=== PATIENT | male | born 1995 | race Caucasian/White ===

== ENCOUNTER 2017-12-25 13:01 | Inpatient (IN) | payer OTHER ==
[2017-12-25 17:40] VITALS: BMI 28.2
--- NOTE | 2017-12-25 18:56 | HP ---
Admission [facility] Chief Complaint: requesting inaptient rehab from cannabis Allergies/Adverse Reactions: Allergies Allergy/AdvReac Type Severity Reaction Status Date / Time No Known Allergies Allergy Verified 12/25/17 18:58 History of Present Illness: 22 yo m with h/o cannbis dependenc, anxiety, depressuion and insoman i requesting inaptient rehab not on any meds, no h/ SI Exam Limitations: No Limitations - Ebola screening Have you traveled outside of the country in the last 21 days: No Have you had contact with anyone from an Ebola affected area: No Have you been sick,other than usual withdrawal symptoms: No - Review of Systems Constitutional: No Symptoms Reported EENT: reports: No Symptoms Reported Respiratory: reports: No Symptoms reported Cardiac: reports: No Symptoms Reported GI: reports: No Symptoms Reported : reports: No Symptoms Reported Musculoskeletal: reports: No Symptoms Reported Integumentary: reports: No Symptoms Reported Neuro: reports: No Symptoms reported Endocrine: reports: No Symptoms Reported Psychiatric: reports: Judgement Intact, Mood/Affect Appropiate, Orientated x3, Anxious, Depressed Other Systems: Reviewed and Negative Patient History - Patient Medical History Hx Anemia: No Hx Asthma: No Hx Chronic Obstructive Pulmonary Disease (COPD): No Hx Cancer: No Hx Cardiac Disorders: No Hx Congestive Heart Failure: No Hx Hypertension: No Hx Hypercholesterolemia: No Hx Pacemaker: No HX Cerebrovascular Accident: No Hx Seizures: No Hx Dementia: No Hx Diabetes: No Hx Gastrointestinal Disorders: No Hx Liver Disease: No Hx Genitourinary Disorders: No Hx Sexually Transmitted Disorders: No Hx Renal Disease (ESRD): No Hx Thyroid Disease: No Hx Human Immunodeficiency Virus (HIV): No Hx Hepatitis C: No Hx Depression: Yes (was taking remoreon) Hx Suicide Attempt: No (no si at this tiem) Hx Bipolar Disorder: No Hx Schizophrenia: No - Patient Surgical History Past Surgical History: Yes Hx Orthopedic Surgery: Yes (orif funn bone r) Anesthesia Reaction: No - PPD History Previous Implant?: No Documented Results: Negative w/o proof PPD to be Administered?: Yes - Reproductive History Patient is a Female of Child Bearing Age (11 -55 yrs old): No Patient : No - Smoking Cessation Smoking history: Current every day smoker Have you smoked in the past 12 months: Yes Aproximately how many cigarettes per day: 10 Hx Chewing Tobacco Use: No Initiated information on smoking cessation: Yes 'Breaking Loose' booklet given: 12/25/17 Family Disease History - Family Disease History Family History: Denies Admission Physical Exam [facility] - Vital Signs Vital Signs: Vital Signs - 24 hr 12/25/17 17:38 Temperature 96.9 F L Pulse Rate 60 Respiratory 18 Rate Blood Pressure 140/73 - Physical General Appearance: Yes: Within Normal Limits, No Apparent Distress, Nourished, Appropriately Dressed HEENTM: Yes: Within Normal Limits, EOMI, Hearing grossly Normal, Normal ENT Inspection, Normocephalic, Normal Voice, [place], Pharynx Normal Respiratory: Yes: Within Normal Limits, Chest Non-Tender, Lungs Clear, Normal Breath Sounds, No Respiratory Distress, No Accessory Muscle Use Neck: Yes: Within Normal Limits, No masses,lesions,Nodules, Supple, Trachea in good position Breast: Yes: Breast Exam Deferred Cardiology: Yes: Within Normal Limits, Regular Rhythm, Regular Rate, S1, S2 Abdominal: Yes: Within Normal Limits, Normal Bowel Sounds, Non Tender, Flat, Soft Genitourinary: Yes: Within Normal Limits Back: Yes: Within Normal Limits, Normal Inspection Musculoskeletal: Yes: Within Normal Limits, full range of Motion, Gait Steady, Pelvis Stable Extremities: Yes: Within Normal Limits, Normal Capillary Refill, Normal Inspection, Normal Range of Motion, Non-Tender 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: 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: 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 NML intact, Fully Oriented, Alert, Motor Strength 5/5, Normal Response, Depressed Affect Integumentary: Yes: Within Normal Limits, Normal Color, Dry, Warm Lymphatic: Yes: Within Normal Limits - Diagnostic (1) Anxiety Current Visit: Yes Status: Acute (2) Cannabis dependence Current Visit: Yes Status: Acute (3) Depression Current Visit: Yes Status: Acute (4) Insomnia Current Visit: Yes Status: Acute Cleared for Admission [facility] - Detox or Rehab Claeared for Rehab Admission: Yes [facility] Breath Alcohol Content Breath Alcohol Content: 0 Urine Drug Screen - Results Drug Screen Negative: No Urine Drug Screen Results: THC-Marijuana Inpatient Rehab Admission - Initial Determination Are CD services needed?: Yes Free of communicable disease: Yes Not in need of hospitalization: Yes - Rehab Admission Criteria Lacks judgement: Yes Patient is meeting Inpatient Rehab admission criteria:: Yes
[2017-12-25] MEDS ORDERED: MENTHOL/PHENOL 1 EACH UD MM PRN (19:01)
[2017-12-25] MEDS ORDERED: guaiFENesin/D-METHORPHAN HB 10 ML UNIT-DOSE CUPS PO PRN (19:01)
[2017-12-25] MEDS ORDERED: LOPERAMIDE HCL 2 MG CAPSULE PO PRN (19:01)
[2017-12-25] MEDS ORDERED: MAGNESIUM CITRATE 300 ML BOTTLE PO PRN (19:01)
[2017-12-25] MEDS ORDERED: MAG HYDROX/AL HYDROX/SIMETH 30 ML UNIT-DOSE CUP PO PRN (19:01)
[2017-12-25] MEDS ORDERED: hydrOXYzine PAMOATE 25 MG CAPSULE (FP) PO PRN (19:01)
[2017-12-25] MEDS ORDERED: P-EPHED 60MG/TRIPROLIDI 2.5MG TABLET PO PRN (19:01)
[2017-12-25] MEDS ORDERED: MAGNESIUM HYDROX 2400MG/30ML ORAL SUSPENSION 30 ML CUP PO PRN (19:01)
[2017-12-25] MEDS ORDERED: ACETAMINOPHEN 325 MG TABLET (FP) PO PRN (19:01)
[2017-12-25] MEDS ORDERED: NICOTINE POLACRILEX 2 MG GUM BC PRN (19:01)
[2017-12-25] MEDS: MELATONIN 5 MG TABLETS PO PRN (21:48)
[2017-12-25] MEDS: NICOTINE 14 MG/24 HOURS TOPICAL PATCH TD SCH (21:48)
[2017-12-25] MEDS: THIAMINE HCL 100 MG TABLET (FP) PO SCH (21:48)
[2017-12-25] MEDS ORDERED: TUBERCULIN PPD 5 TU/0.1ML VIAL ID ONE (21:54)
[2017-12-25 22:11] LABS: URINE APPEARANCE SLCLOUDY; URINE BILIRUBIN NEGATIVE (<2.0 mg/dL); URINE BLOOD NEGATIVE (NEGATIVE); URINE COLOR YELLOW; URINE GLUCOSE (UA) NEGATIVE (NEGATIVE); URINE KETONE NEGATIVE (NEGATIVE); URINE NITRITE POSITIVE (NEGATIVE); URINE PROTEIN NEGATIVE (NEGATIVE); URINE UROBILINOGEN NEGATIVE mg/dL (0.2-1.0)
[2017-12-25 22:12] LABS: URINE LEUK ESTERASE 1+ (NEGATIVE)
[2017-12-25 22:17] LABS: EPI CELLS RARE /HPF (FEW); URINE BACTERIA MANY /hpf (NONE SEEN); URINE MUCUS RARE
[2017-12-26] MEDS: PRENATAL VITAMINS W/ FOLIC ACID TABLET (FP) PO SCH (10:11)
[2017-12-26] MEDS: NICOTINE 14 MG/24 HOURS TOPICAL PATCH TD SCH (10:12)
[2017-12-26 10:15] LABS: HEMATOCRIT 41.9 % (35.4-49); MCH 28.1 pg (25.7-33.7); MCHC 33.3 g/dl (32.0-35.9); MEAN CELL VOLUME 84.5 fl (80-96); MEAN PLT VOLUME 11.7 fl (7.5-11.1); PLATELET COUNT 137 K/MM3 (134-434); RBC 4.96 M/mm3 (4.00-5.60); RDW 14.4 % (11.9-15.9); WHITE BLOOD COUNT 8.1 K/mm3 (4.0-10.0)
[2017-12-26 10:50] LABS: ALBUMIN 3.2 g/dl (3.4-5.0); ANION GAP 5 (8-16); BLOOD UREA NITROGEN 10 mg/dL (7-18); CALCIUM 8.4 mg/dL (8.5-10.1); CHLORIDE 108 mmol/L (98-107); CO2 28 mmol/L (21-32); CREATININE 0.8 mg/dL (0.7-1.3); GLUCOSE,RANDOM 142 mg/dL (74-106); POTASSIUM 4.1 mmol/L (3.5-5.1); SGOT/AST 12 U/L (15-37); SGPT/ALT 15 U/L (12-78); SODIUM 141 mmol/L (136-145)
[2017-12-26 10:51] LABS: ALK PHOS 53 U/L (45-117); BILIRUBIN,TOTAL 0.1 mg/dL (0.2-1.0); TOT PROT 6.5 g/dl (6.4-8.2)
--- NOTE | 2017-12-26 11:45 | EKG ---
Test Reason : Blood Pressure : / mmHG Vent. Rate : 068 BPM Atrial Rate : 068 BPM P-R Int : 140 ms QRS Dur : 098 ms QT Int : 384 ms P-R-T Axes : 058 058 060 degrees QTc Int : 408 ms NORMAL SINUS RHYTHM WITH SINUS ARRHYTHMIA NORMAL ECG NO PREVIOUS ECGS AVAILABLE Confirmed by JEAN-PAUL RICH, ANNETTA ([id number]) on 12/26/2017 11:44:47 AM Referred By: Confirmed By:ANNETTA JEONG MD
--- NOTE | 2017-12-26 13:33 | HP ---
Psychiatrist Admission - Data Date of interview: 12/26/17 Admission source: [facility]. Identifying data: This is the first 5N inpatient rehabilitation admission for this 22 year old single male, unemployed and domiciled. Medical History: ORIF in 2007, smokes cigarettes 1/2 PPD. Psychiatric History: Patient reports history of treatment for depression and anxiety, states he started Remeron while incarcerated, spent 5 years for burglary, released on 08/16 then he continued to see a psychiatrist at [facility], no history of psychiatric hospitalizations , currently on Remeron 15 mg po hs , c/o insomnia, anxiety. Physical/Sexual Abuse/Trauma History: Denies history of sexual, physical and verbal abuse. Vital Signs: Vital Signs - 24 hr 12/25/17 12/26/17 12/26/17 17:38 00:43 03:30 Temperature 96.9 F L Pulse Rate 60 Respiratory 18 16 16 Rate Blood Pressure 140/73 12/26/17 07:19 Temperature 97.0 F L Pulse Rate 54 L Respiratory 18 Rate Blood Pressure 105/63 Allergies/Adverse Reactions: Allergies Allergy/AdvReac Type Severity Reaction Status Date / Time No Known Allergies Allergy Verified 12/25/17 18:58 Date of last physical exam: 12/25/17 Concur with the findings of this exam: Yes - Substance Abuse/Tx History Hx Alcohol Use: No Substance Use Type: Marijuana (daily use) Hx Substance Use Treatment: Yes ([facility]) Mental Status Exam - Mental Status Exam Alert and Oriented to: Time, Place, Person Cognitive Function: Grossly Intact Patient Appearance: Well Groomed Mood: Anxious Affect: Appropriate Patient Behavior: Appropriate, Cooperative Speech Pattern: Clear, Appropriate Voice Loudness: Normal Thought Process: Intact, Goal Oriented Thought Disorder: Not Present Hallucinations: Denies Suicidal Ideation: Denies Homicidal Ideation: Denies Insight/Judgement: Fair Sleep: Poorly, Difficulty falling asleep Appetite: Fair Muscle strength/Tone: Normal Gait/Station: Normal Psychiatric Findings - Problem List ([place] 1, 2,3) (1) Anxiety Current Visit: Yes Status: Acute (2) Cannabis dependence Current Visit: Yes Status: Acute (3) Depression Current Visit: Yes Status: Acute (4) Insomnia Current Visit: Yes Status: Acute - Initial Treatment Plan Initial Treatment Plan: willl increase Remeron 30 mg po hs, add Gabapentin 100 mg po tid (side-effects/benefits discussed), patient made aware of Vistaril PRN order, monitor progress.
[2017-12-26] MEDS: GABAPENTIN 100 MG CAPSULE (FP) PO SCH ×2 (14:09→21:44)
[2017-12-26] MEDS: MIRTAZAPINE 30 MG TABLET (FP) PO SCH (21:44)
[2017-12-26] MEDS: THIAMINE HCL 100 MG TABLET (FP) PO SCH (21:44)
[2017-12-27] MEDS: GABAPENTIN 100 MG CAPSULE (FP) PO SCH ×3 (06:37→21:17)
[2017-12-27] MEDS: PRENATAL VITAMINS W/ FOLIC ACID TABLET (FP) PO SCH (09:48)
[2017-12-27] MEDS: NICOTINE 14 MG/24 HOURS TOPICAL PATCH TD SCH (09:49)
[2017-12-27] MEDS: MIRTAZAPINE 30 MG TABLET (FP) PO SCH (21:17)
[2017-12-27] MEDS: THIAMINE HCL 100 MG TABLET (FP) PO SCH (21:17)
[2017-12-27] MEDS: hydrOXYzine PAMOATE 50 MG CAPSULE (FP) PO PRN (21:18)
[2017-12-28] MEDS: GABAPENTIN 100 MG CAPSULE (FP) PO SCH ×3 (06:17→21:36)
[2017-12-28] MEDS: PRENATAL VITAMINS W/ FOLIC ACID TABLET (FP) PO SCH (10:24)
[2017-12-28] MEDS: NICOTINE 14 MG/24 HOURS TOPICAL PATCH TD SCH (10:24)
[2017-12-28] MEDS: THIAMINE HCL 100 MG TABLET (FP) PO SCH (21:36)
[2017-12-28] MEDS: MIRTAZAPINE 30 MG TABLET (FP) PO SCH (21:36)
[2017-12-29] MEDS: GABAPENTIN 100 MG CAPSULE (FP) PO SCH ×3 (06:41→21:19)
[2017-12-29] MEDS: NICOTINE 14 MG/24 HOURS TOPICAL PATCH TD SCH (10:31)
[2017-12-29] MEDS: PRENATAL VITAMINS W/ FOLIC ACID TABLET (FP) PO SCH (10:31)
[2017-12-29] MEDS: MIRTAZAPINE 30 MG TABLET (FP) PO SCH (21:19)
[2017-12-29] MEDS: THIAMINE HCL 100 MG TABLET (FP) PO SCH (21:19)
[2017-12-29] MEDS: hydrOXYzine PAMOATE 50 MG CAPSULE (FP) PO PRN (21:20)
[2017-12-30] MEDS: GABAPENTIN 100 MG CAPSULE (FP) PO SCH ×3 (06:27→21:39)
[2017-12-30] MEDS: NICOTINE 14 MG/24 HOURS TOPICAL PATCH TD SCH (10:15)
[2017-12-30] MEDS: PRENATAL VITAMINS W/ FOLIC ACID TABLET (FP) PO SCH (10:15)
[2017-12-30] MEDS: hydrOXYzine PAMOATE 50 MG CAPSULE (FP) PO PRN (21:39)
[2017-12-30] MEDS: MIRTAZAPINE 30 MG TABLET (FP) PO SCH (21:39)
[2017-12-30] MEDS: THIAMINE HCL 100 MG TABLET (FP) PO SCH (21:39)
[2017-12-31] MEDS: GABAPENTIN 100 MG CAPSULE (FP) PO SCH ×3 (06:16→21:17)
[2017-12-31] MEDS: PRENATAL VITAMINS W/ FOLIC ACID TABLET (FP) PO SCH (10:06)
[2017-12-31] MEDS: IBUPROFEN 400 MG TABLET (FP) PO PRN ×2 (10:06→21:18)
[2017-12-31] MEDS: NICOTINE 14 MG/24 HOURS TOPICAL PATCH TD SCH (10:06)
[2017-12-31] MEDS: hydrOXYzine PAMOATE 50 MG CAPSULE (FP) PO PRN (21:17)
[2017-12-31] MEDS: MIRTAZAPINE 30 MG TABLET (FP) PO SCH (21:17)
[2017-12-31] MEDS: MELATONIN 5 MG TABLETS PO PRN (21:17)
[2017-12-31] MEDS: THIAMINE HCL 100 MG TABLET (FP) PO SCH (21:17)
[2018-01-01] MEDS: GABAPENTIN 100 MG CAPSULE (FP) PO SCH ×3 (06:08→21:26)
[2018-01-01 07:02] VITALS: TEMP 97.6
[2018-01-01] MEDS: PRENATAL VITAMINS W/ FOLIC ACID TABLET (FP) PO SCH (10:12)
[2018-01-01] MEDS: IBUPROFEN 400 MG TABLET (FP) PO PRN (10:12)
[2018-01-01] MEDS: NICOTINE 14 MG/24 HOURS TOPICAL PATCH TD SCH (10:12)
[2018-01-01] MEDS: THIAMINE HCL 100 MG TABLET (FP) PO SCH (21:26)
[2018-01-01] MEDS: MELATONIN 5 MG TABLETS PO PRN (21:26)
[2018-01-01] MEDS: MIRTAZAPINE 30 MG TABLET (FP) PO SCH (21:26)
[2018-01-02] MEDS: GABAPENTIN 100 MG CAPSULE (FP) PO SCH (06:25)
[2018-01-02 07:29] VITALS: BP 117/71; PULSE 55
[2018-01-02] MEDS: NICOTINE 14 MG/24 HOURS TOPICAL PATCH TD SCH (10:06)
[2018-01-02] MEDS: PRENATAL VITAMINS W/ FOLIC ACID TABLET (FP) PO SCH (10:06)
--- NOTE | 2018-01-02 13:48 | PN ---
Psychiatric Progress Note Vital Signs: Vital Signs Period Temp Pulse Resp BP Sys/Chau Pulse Ox Last 24 Hr 97.6 F 55 16-18 117/71 Date of Session: 01/02/18 Chief Complaint:: progress update HPI: Patient is addressing cannabis dependence comorbid anxiety, depression and insomnia. ROS: WNL Current Medications: Active Medications Generic Name Dose Route Start Last Admin Trade Name Freq PRN Reason Stop Dose Admin Acetaminophen 650 mg 12/25/17 19:01 01/02/18 10:06 Tylenol - PO 650 mg Q4H PRN Administration FEVER Al Hydroxide/Mg Hydroxide 30 ml 12/25/17 19:01 Mylanta Oral Suspension - PO Q6H PRN DYSPEPSIA Eucalyptus/Menthol/Phenol/Sorbitol 1 each 12/25/17 19:01 Cepastat Lozenge - MM Q4H PRN SORE THROAT Gabapentin 300 mg 01/02/18 13:29 Neurontin - PO TID AUGUSTO Guaifenesin 10 ml 12/25/17 19:01 Robitussin Dm - PO Q6H PRN COUGH Hydroxyzine Pamoate 50 mg 12/26/17 11:32 12/31/17 21:17 Vistaril - PO 50 mg Q4H PRN Administration ANXIETY Ibuprofen 400 mg 12/25/17 19:01 01/01/18 10:12 Motrin - PO 400 mg Q6H PRN Administration Pain level 4-6 Loperamide HCl 4 mg 12/25/17 19:01 Imodium - PO Q6H PRN DIARRHEA Magnesium Citrate 300 ml 12/25/17 19:01 Citroma - PO Q48H PRN CONSTIPATION Magnesium Hydroxide 30 ml 12/25/17 19:01 Milk Of Magnesia - PO DAILY PRN CONSTIPATION Melatonin 5 mg 12/25/17 22:00 01/01/18 21:26 Melatonin PO 5 mg HS PRN Administration INSOMNIA Mirtazapine 45 mg 01/02/18 13:29 Remeron - PO HS AUGUSTO Nicotine 14 mg 12/25/17 19:15 01/02/18 10:06 Nicoderm Patch - TD Not Given DAILY AUGUSTO Nicotine Polacrilex 2 mg 12/25/17 19:01 Nicorette Gum - BC Q2H PRN NICOTINE REPLACEMENT RX Multivit/Folic Acid/Iron 1 tab 12/26/17 10:00 01/02/18 10:06 Vitamins (Sjr) - PO 1 tab DAILY AUGUSTO Administration Pseudoephedrine/Triprolidine 1 combo 12/25/17 19:01 Actifed - PO TID PRN NASAL CONGESTION Thiamine HCl 100 mg 12/25/17 22:00 01/01/18 21:26 Vitamin B1 - PO 100 mg HS AUGUSTO Administration Current Side Effect: No Lab tests ordered: No Lab tests reviewed: Yes Provider note:: Patient adjusted well to the unit, attends and participates in groups, he understands that his use of marijuana has caused many consquences in his life that affected his decision making skills. He reports has been feeling anxious and unable to sleep, currently on Remeron 30 mg hs and Gabapentin 100 mg po tid, reviewed medications with the patient, he rports no side-effects , patient was recommended to increase Remeron 45 mg po hs and Gabapentin 300 mg po tid, he agreed with careplan, will continue to monitor progress. Total face to face time:: 35 Mental Status Exam - Mental Status Exam Alert and Oriented to: Time, Place, Person Cognitive Function: Grossly Intact Patient Appearance: Well Groomed Mood: Depressed, Anxious Affect: Appropriate, Mood Congruent Patient Behavior: Appropriate, Cooperative Speech Pattern: Clear, Appropriate Voice Loudness: Normal Thought Process: Intact, Goal Oriented Thought Disorder: Not Present Hallucinations: Denies Suicidal Ideation: Denies Homicidal Ideation: Denies Insight/Judgement: Fair Sleep: Poorly, Difficulty falling asleep Appetite: Fair Muscle strength/Tone: Normal Gait/Station: Normal Psychiatric Treatment Plan - Problem List (1) Anxiety Current Visit: Yes (2) Cannabis dependence Current Visit: Yes (3) Depression Current Visit: Yes (4) Insomnia Current Visit: Yes
[2018-01-02] MEDS: GABAPENTIN 300 MG CAPSULE (FP) PO SCH ×2 (13:59→21:37)
[2018-01-02] MEDS: THIAMINE HCL 100 MG TABLET (FP) PO SCH (21:37)
[2018-01-02] MEDS: MELATONIN 5 MG TABLETS PO PRN (21:39)
[2018-01-02] MEDS ORDERED: MIRTAZAPINE 15 MG TABLET (FP) PO SCH (22:00)
--- NOTE | 2018-01-03 08:05 | PN ---
[facility] Progress Note Note: was informed on 01/03/18 signed out AMA , please see medical staff notes
== END 2018-01-02 22:00 | disposition home or self-care (01) | DRG 772 ==
LOC: YASAS 13:01 → Y5N 19:24
PROVIDERS: ADMIT Psychiatry & Neurology Psychiatry; ATTEND Psychiatry & Neurology Psychiatry
PROC: HZ42ZZZ Group Counseling for Substance Abuse Treatment, Cognitive-Behavioral (ICD-10-PCS; principal; 2017-12-25)
DX: F12.20 Cannabis dependence, uncomplicated (principal); F32.9 Major depressive disorder, single episode, unspecified; F41.9 Anxiety disorder, unspecified; G47.00 Insomnia, unspecified
CPT/HCPCS: 36415; 80053; 81003; 81015; 85027; 86593; 93005; 93010

== ENCOUNTER 2018-02-19 15:40 | Inpatient (IN) | payer OTHER ==
[2018-02-19 17:15] VITALS: BMI 24.9
--- NOTE | 2018-02-19 21:02 | HP ---
Admission [facility] Chief Complaint: MANDATED TO INPATIENT REHAB SERVICES FOR CANNABIS DEPENDENCE Allergies/Adverse Reactions: Allergies Allergy/AdvReac Type Severity Reaction Status Date / Time No Known Allergies Allergy Verified 12/25/17 18:58 History of Present Illness: 22 Y.O. MALE WITH CANNABIS DEPENDENCE HERE FOR REHAB. CLIENT IS KNOWN TO THIS PROGRAM. LAST HERE A MONTH AGO AND AMA. HE NOW RETURNS HE IS COURT MANDATED BY LEGALS. DENIES ANY SIGNIFICANT PERIOD OF CLEAN TIME. DENIES SI/HI AND A/V HALLUCINATIONS. PMHX: DENIES PSYCH: DEPRESSION, ANXIETY Exam Limitations: No Limitations - Ebola screening Have you traveled outside of the country in the last 21 days: No (N) Have you had contact with anyone from an Ebola affected area: No Have you been sick,other than usual withdrawal symptoms: No Do you have a fever: No - Review of Systems Constitutional: Loss of Appetite, Changes in sleep, Unintentional Wgt. Loss EENT: reports: Other (CORRECTIVE LENSES) Respiratory: reports: No Symptoms reported Cardiac: reports: No Symptoms Reported GI: reports: No Symptoms Reported : reports: No Symptoms Reported Musculoskeletal: reports: No Symptoms Reported Integumentary: reports: Rash (PRURITIC RASH X 1 DAY TO BUE.) Neuro: reports: No Symptoms reported Endocrine: reports: No Symptoms Reported Hematology: reports: No Symptoms Reported Psychiatric: reports: Anxious, Depressed Other Systems: Reviewed and Negative Patient History - Patient Medical History Hx Anemia: No Hx Asthma: No Hx Chronic Obstructive Pulmonary Disease (COPD): No Hx Cancer: No Hx Cardiac Disorders: No Hx Congestive Heart Failure: No Hx Hypertension: No Hx Hypercholesterolemia: No Hx Pacemaker: No HX Cerebrovascular Accident: No Hx Seizures: No Hx Dementia: No Hx Diabetes: No Hx Gastrointestinal Disorders: No Hx Liver Disease: No Hx Genitourinary Disorders: No Hx Sexually Transmitted Disorders: No Hx Renal Disease (ESRD): No Hx Thyroid Disease: No Hx Human Immunodeficiency Virus (HIV): No Hx Hepatitis C: No Hx Depression: Yes Hx Suicide Attempt: No Hx Bipolar Disorder: No Hx Schizophrenia: No Other Medical History: ANXIETY - Patient Surgical History Past Surgical History: Yes Hx Neurologic Surgery: No Hx Cataract Extraction: No Hx Cardiac Surgery: No Hx Lung Surgery: No Hx Breast Surgery: No Hx Breast Biopsy: No Hx Abdominal Surgery: No Hx Appendectomy: No Hx Cholecystectomy: No Hx Genitourinary Surgery: No Hx Section: No Hx Orthopedic Surgery: Yes (orif funn bone r) Anesthesia Reaction: No - PPD History Previous Implant?: Yes Documented Results: Negative w/proof Implanted On Prior [facility] Admission?: No Date: 12/27/17 Results: 0MM PPD to be Administered?: No - Smoking Cessation Smoking history: Current every day smoker Have you smoked in the past 12 months: Yes Aproximately how many cigarettes per day: 10 Hx Chewing Tobacco Use: No Initiated information on smoking cessation: Yes 'Breaking Loose' booklet given: 02/19/18 - Substance & Tx. History Hx Alcohol Use: No Hx Substance Use: Yes Substance Use Type: Marijuana Hx Substance Use Treatment: Yes ([facility]) - Substances Abused THC Route: Smoking Frequency: Daily Amount used: 10 BLUNTS Age of first use: 12 Date of Last Use: 02/19/18 Family Disease History - Family Disease History Family History: Denies Admission Physical Exam S - Vital Signs Vital Signs: Vital Signs - 24 hr 02/19/18 17:13 Temperature 97.1 F L Pulse Rate 61 Respiratory 20 Rate Blood Pressure 123/61 - Physical General Appearance: Yes: Appropriately Dressed, Anxious HEENTM: Yes: EOMI, Normocephalic, Normal Voice, [place], Pharynx Normal Respiratory: Yes: Chest Non-Tender, Lungs Clear, Normal Breath Sounds, No Respiratory Distress, No Accessory Muscle Use Neck: Yes: No masses,lesions,Nodules, Supple, Trachea in good position Breast: Yes: Breast Exam Deferred Cardiology: Yes: Regular Rhythm, Regular Rate, S1, S2 Abdominal: Yes: Normal Bowel Sounds, Non Tender, Soft Genitourinary: Yes: Within Normal Limits Back: Yes: Other (ACNE) Musculoskeletal: Yes: full range of Motion, Gait Steady Extremities: Yes: Normal Capillary Refill, Normal Inspection, Normal Range of Motion, Non-Tender 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: Yes: Fully Oriented, Alert, Motor Strength 5/5 Integumentary: Yes: Dry, Warm, Other (SUNBURN SKIN NOTED TO FACE BUE WITH RED BASED RASH CLIENT REPORTS IT IS PRURITIC) - Diagnostic (1) Nicotine dependence Current Visit: Yes Status: Chronic Qualifiers: Nicotine product type: cigarettes Substance use status: uncomplicated Qualified Code(s): F17.210 - Nicotine dependence, cigarettes, uncomplicated (2) Substance induced mood disorder Current Visit: Yes Status: Suspected (3) Contact dermatitis Current Visit: Yes Status: Acute Qualifiers: Contact dermatitis type: irritant Contact dermatitis trigger: unspecified trigger Qualified Code(s): L24.9 - Irritant contact dermatitis, unspecified cause (4) Cannabis dependence Current Visit: Yes Status: Chronic Cleared for Admission [facility] - Detox or Rehab Detox Regimen/Protocol: Not Applicable Claeared for Rehab Admission: Yes S Breath Alcohol Content Breath Alcohol Content: 0 Urine Drug Screen - Results Drug Screen Negative: No Urine Drug Screen Results: THC-Marijuana Inpatient Rehab Admission - Initial Determination Are CD services needed?: Yes Free of communicable disease: Yes Not in need of hospitalization: Yes - Rehab Admission Criteria Previous failed treatment: Yes Poor recovery environment: Yes Comorbidities: Yes Lacks judgement: Yes Patient is meeting Inpatient Rehab admission criteria:: Yes
[2018-02-19] MEDS ORDERED: HYDROCORTISONE 1% TOPICAL CREAM 30 GM TUBE TP PRN (21:07)
[2018-02-19] MEDS ORDERED: guaiFENesin/D-METHORPHAN HB 10 ML UNIT-DOSE CUPS PO PRN (21:10)
[2018-02-19] MEDS ORDERED: hydrOXYzine PAMOATE 50 MG CAPSULE (FP) PO PRN (21:10)
[2018-02-19] MEDS ORDERED: MENTHOL/PHENOL 1 EACH UD MM PRN (21:10)
[2018-02-19] MEDS ORDERED: IBUPROFEN 400 MG TABLET (FP) PO PRN (21:10)
[2018-02-19] MEDS ORDERED: NICOTINE POLACRILEX 2 MG GUM BC PRN (21:10)
[2018-02-19] MEDS ORDERED: LOPERAMIDE HCL 2 MG CAPSULE PO PRN (21:10)
[2018-02-19] MEDS ORDERED: ACETAMINOPHEN 325 MG TABLET (FP) PO PRN (21:10)
[2018-02-19] MEDS ORDERED: MAGNESIUM CITRATE 300 ML BOTTLE PO PRN (21:10)
[2018-02-19] MEDS ORDERED: P-EPHED 60MG/TRIPROLIDI 2.5MG TABLET PO PRN (21:10)
[2018-02-19] MEDS ORDERED: MAGNESIUM HYDROX 2400MG/30ML ORAL SUSPENSION 30 ML CUP PO PRN (21:10)
[2018-02-19] MEDS: THIAMINE HCL 100 MG TABLET (FP) PO SCH (23:31)
[2018-02-20 01:08] LABS: URINE APPEARANCE CLOUDY; URINE BILIRUBIN NEGATIVE (<2.0 mg/dL); URINE BLOOD NEGATIVE (NEGATIVE); URINE COLOR AMBER; URINE GLUCOSE (UA) NEGATIVE (NEGATIVE); URINE KETONE NEGATIVE (NEGATIVE); URINE LEUK ESTERASE NEGATIVE (NEGATIVE); URINE NITRITE NEGATIVE (NEGATIVE); URINE PROTEIN NEGATIVE (NEGATIVE)
[2018-02-20] MEDS: PRENATAL VITAMINS W/ FOLIC ACID TABLET (FP) PO SCH (09:39)
[2018-02-20] MEDS: NICOTINE 14 MG/24 HOURS TOPICAL PATCH TD SCH (09:40)
[2018-02-20] MEDS: CALAMINE 8% TOPICAL LOTION 177 ML BOTTLE TP PRN (09:41)
[2018-02-20 14:04] LABS: CHLORIDE 108 mmol/L (98-107); POTASSIUM 3.8 mmol/L (3.5-5.1); SODIUM 144 mmol/L (136-145)
[2018-02-20 14:06] LABS: HEMATOCRIT 48.6 % (35.4-49); HEMOGLOBIN 16.3 GM/dL (11.7-16.9); MCH 28.1 pg (25.7-33.7); MCHC 33.5 g/dl (32.0-35.9); MEAN CELL VOLUME 83.9 fl (80-96); MEAN PLT VOLUME 12.5 fl (7.5-11.1); PLATELET COUNT 126 K/MM3 (134-434); RBC 5.79 M/mm3 (4.00-5.60); RDW 14.9 % (11.9-15.9); WHITE BLOOD COUNT 5.4 K/mm3 (4.0-10.0)
[2018-02-20 14:16] LABS: ALK PHOS 77 U/L (45-117); ANION GAP 6 (8-16); BILIRUBIN,TOTAL 0.4 mg/dL (0.2-1.0); BLOOD UREA NITROGEN 11 mg/dL (7-18); CALCIUM 9.3 mg/dL (8.5-10.1); CO2 30 mmol/L (21-32); CREATININE 0.9 mg/dL (0.7-1.3); GLUCOSE,RANDOM 82 mg/dL (74-106); SGOT/AST 11 U/L (15-37); SGPT/ALT 12 U/L (12-78); TOT PROT 7.8 g/dl (6.4-8.2)
--- NOTE | 2018-02-20 15:24 | PN ---
[facility] Progress Note Note: Vital Signs Temperature 97.1 F L 02/19/18 17:13 Pulse Rate 61 02/19/18 17:13 Respiratory Rate 18 02/20/18 06:53 Blood Pressure 123/61 02/19/18 17:13 O2 Sat by Pulse Oximetry (%) hx frequent skin itch relieved with Benadryl PRN. increase fluids Benadryl 25 mg PRN continue to monitor
[2018-02-20] MEDS: diphenhydrAMINE HCL 25 MG CAPSULE (FP) PO PRN ×2 (16:12→22:09)
[2018-02-20] MEDS: THIAMINE HCL 100 MG TABLET (FP) PO SCH (22:09)
--- NOTE | 2018-02-21 06:43 | HP ---
Psychiatrist Admission - Data Date of interview: 02/21/18 Admission source: Court mandated Identifying data: This is the second [facility] admission for this 22 years old single male, unemployed with no source of income, homeless Medical History: Unremarkable except history of ORIF for fracture of right humerus. 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 Following his released he saw a psychiatrist at [facility] till October 2017 and was prescribed Remeron 15 mg po HS then. He was admitted to inpt rehab in this facility from 12/25/17 to 01/03/18 and was treated with Remeron up to 45 mg po HS and Gabapentin 300 mg po TID. He was admitted to [facility] from 01/06/18 to 01/31/18 and was prescribed Seroquel 50 mg po HS and Buspar by Dr Huang. Carey that none of these medications worked and he had to stopped taking them. Denies previous psychiatric admissions or suicidal attempt. At present, reports feeling well but sleeping poorly Physical/Sexual Abuse/Trauma History: Denies history of emotional, physical or sexual abuse as well as DV relationship. No service Additional Comment: Reports history of 4-5 previous arrests including 3 felony convictions. Reports being on parole till September 2021 and probation till 2026 Vital Signs: Vital Signs - 24 hr 02/20/18 02/21/18 02/21/18 06:53 00:30 03:30 Respiratory 18 18 Rate Allergies/Adverse Reactions: Allergies Allergy/AdvReac Type Severity Reaction Status Date / Time No Known Allergies Allergy Verified 02/19/18 21:27 Date of last physical exam: 02/19/18 Concur with the findings of this exam: Yes - Substance Abuse/Tx History Hx Alcohol Use: No Hx Substance Use: Yes Substance Use Type: Marijuana (Started smoking marijuana at age 12, consumes 10 blunts daily. Last smoked on 02/19/18) Hx Substance Use Treatment: Yes (One previous inpt rehab admission @ [facility] ) Mental Status Exam - Mental Status Exam Alert and Oriented to: Time, Place, Person Cognitive Function: Fair Patient Appearance: Well Groomed Mood: Hopeful, Euthymic Patient Behavior: Cooperative Speech Pattern: Clear Voice Loudness: Normal Thought Process: Intact, Goal Oriented Hallucinations: Denies Suicidal Ideation: Denies Homicidal Ideation: Denies Insight/Judgement: Poor Sleep: Poorly Appetite: Poor Muscle strength/Tone: Normal Gait/Station: Normal Psychiatric Findings - Problem List ([place] 1, 2,3) (1) Cannabis dependence Current Visit: Yes Status: Chronic (2) Nicotine dependence Current Visit: Yes Status: Chronic Qualifiers: Nicotine product type: cigarettes Substance use status: uncomplicated Qualified Code(s): F17.210 - Nicotine dependence, cigarettes, uncomplicated (3) Substance-induced sleep disorder Current Visit: Yes Status: Acute (4) Contact dermatitis Current Visit: Yes Status: Acute Qualifiers: Contact dermatitis type: irritant Contact dermatitis trigger: unspecified trigger Qualified Code(s): L24.9 - Irritant contact dermatitis, unspecified cause - Initial Treatment Plan Initial Treatment Plan: 1) Start Belsomra 10 mg po HS prn for insomnia. 2) Monitor progress
[2018-02-21] MEDS: PRENATAL VITAMINS W/ FOLIC ACID TABLET (FP) PO SCH (09:42)
[2018-02-21] MEDS: NICOTINE 14 MG/24 HOURS TOPICAL PATCH TD SCH (09:42)
[2018-02-21] MEDS: diphenhydrAMINE HCL 25 MG CAPSULE (FP) PO PRN ×2 (09:43→21:29)
[2018-02-21] MEDS ORDERED: PT OWN MED DRAWER 7, Y5N ONE (14:33)
[2018-02-21] MEDS: CALAMINE 8% TOPICAL LOTION 177 ML BOTTLE TP PRN (14:33)
[2018-02-21] MEDS: THIAMINE HCL 100 MG TABLET (FP) PO SCH (21:29)
[2018-02-22] MEDS: PRENATAL VITAMINS W/ FOLIC ACID TABLET (FP) PO SCH (09:38)
[2018-02-22] MEDS: CALAMINE 8% TOPICAL LOTION 177 ML BOTTLE TP PRN (09:39)
[2018-02-22] MEDS: diphenhydrAMINE HCL 25 MG CAPSULE (FP) PO PRN ×2 (09:39→21:42)
[2018-02-22] MEDS: NICOTINE 14 MG/24 HOURS TOPICAL PATCH TD SCH (10:34)
[2018-02-22] MEDS: THIAMINE HCL 100 MG TABLET (FP) PO SCH (21:42)
[2018-02-22] MEDS: SUVOREXANT 10 MG TABLET PO PRN (21:43)
[2018-02-23] MEDS: diphenhydrAMINE HCL 25 MG CAPSULE (FP) PO PRN ×2 (09:54→21:35)
[2018-02-23] MEDS: PRENATAL VITAMINS W/ FOLIC ACID TABLET (FP) PO SCH (09:54)
[2018-02-23] MEDS: CALAMINE 8% TOPICAL LOTION 177 ML BOTTLE TP PRN ×2 (09:55→21:35)
[2018-02-23] MEDS: NICOTINE 14 MG/24 HOURS TOPICAL PATCH TD SCH (10:08)
[2018-02-23] MEDS: MAG HYDROX/AL HYDROX/SIMETH 30 ML UNIT-DOSE CUP PO PRN (10:08)
[2018-02-23] MEDS: THIAMINE HCL 100 MG TABLET (FP) PO SCH (21:35)
[2018-02-23] MEDS: SUVOREXANT 10 MG TABLET PO PRN (21:35)
[2018-02-24] MEDS: diphenhydrAMINE HCL 25 MG CAPSULE (FP) PO PRN ×3 (06:10→21:33)
[2018-02-24] MEDS: MAG HYDROX/AL HYDROX/SIMETH 30 ML UNIT-DOSE CUP PO PRN (06:10)
[2018-02-24] MEDS: CALAMINE 8% TOPICAL LOTION 177 ML BOTTLE TP PRN (06:11)
[2018-02-24] MEDS: PRENATAL VITAMINS W/ FOLIC ACID TABLET (FP) PO SCH (10:04)
[2018-02-24] MEDS: NICOTINE 14 MG/24 HOURS TOPICAL PATCH TD SCH (10:18)
--- NOTE | 2018-02-24 17:41 | PN ---
[facility] Progress Note Note: Psychiatry Attending's note : Belsomra 10 mg po hs prn. Renewed at nurse's request. Dose confirmed in treatment plan. Medication well tolerated. No report of adverse effects. Re-ordered for 3 days.
[2018-02-24] MEDS: THIAMINE HCL 100 MG TABLET (FP) PO SCH (21:33)
[2018-02-24] MEDS: SUVOREXANT 10 MG TABLET PO PRN (21:33)
[2018-02-25] MEDS: NICOTINE 14 MG/24 HOURS TOPICAL PATCH TD SCH (09:54)
[2018-02-25] MEDS: PRENATAL VITAMINS W/ FOLIC ACID TABLET (FP) PO SCH (09:54)
[2018-02-25] MEDS: diphenhydrAMINE HCL 25 MG CAPSULE (FP) PO PRN ×2 (09:55→21:31)
[2018-02-25] MEDS: CALAMINE 8% TOPICAL LOTION 177 ML BOTTLE TP PRN (14:47)
[2018-02-25] MEDS: SUVOREXANT 10 MG TABLET PO PRN (21:30)
[2018-02-25] MEDS: MELATONIN 5 MG TABLETS PO PRN (21:30)
[2018-02-25] MEDS: THIAMINE HCL 100 MG TABLET (FP) PO SCH (21:30)
[2018-02-26] MEDS: diphenhydrAMINE HCL 25 MG CAPSULE (FP) PO PRN ×2 (05:57→21:26)
[2018-02-26] MEDS: CALAMINE 8% TOPICAL LOTION 177 ML BOTTLE TP PRN ×2 (05:57→21:27)
[2018-02-26] MEDS: PRENATAL VITAMINS W/ FOLIC ACID TABLET (FP) PO SCH (09:57)
[2018-02-26] MEDS: NICOTINE 14 MG/24 HOURS TOPICAL PATCH TD SCH (09:57)
[2018-02-26] MEDS: COLLOIDAL OATMEAL 1 BAR EACH TP PRN (09:59)
[2018-02-26] MEDS: MELATONIN 5 MG TABLETS PO PRN (21:26)
[2018-02-26] MEDS: THIAMINE HCL 100 MG TABLET (FP) PO SCH (21:26)
[2018-02-26] MEDS: SUVOREXANT 10 MG TABLET PO PRN (21:26)
[2018-02-27] MEDS: PRENATAL VITAMINS W/ FOLIC ACID TABLET (FP) PO SCH (09:36)
[2018-02-27] MEDS: diphenhydrAMINE HCL 25 MG CAPSULE (FP) PO PRN ×2 (09:37→21:28)
[2018-02-27] MEDS: NICOTINE 14 MG/24 HOURS TOPICAL PATCH TD SCH (09:37)
[2018-02-27] MEDS: CALAMINE 8% TOPICAL LOTION 177 ML BOTTLE TP PRN ×2 (09:38→21:29)
--- NOTE | 2018-02-27 11:03 | PN ---
[facility] Progress Note Note: renewal of orders. Belsomra 10 mg po hs prn. Chart reviewed. Drug is well tolerated. Renewed for 3 days.
[2018-02-27] MEDS ORDERED: SIMETHICONE 80 MG TAB.CHEW (FP) PO PRN (15:44)
--- NOTE | 2018-02-27 15:46 | PN ---
[facility] Progress Note Note: c/o of abdominal gas pain Vital Signs Temperature 97.9 F 02/27/18 06:47 Pulse Rate 55 L 02/27/18 06:47 Respiratory Rate 18 02/27/18 06:47 Blood Pressure 114/64 02/27/18 06:47 O2 Sat by Pulse Oximetry (%) - simethicone PRN - continue to monitor
[2018-02-27] MEDS: MELATONIN 5 MG TABLETS PO PRN (21:27)
[2018-02-27] MEDS: THIAMINE HCL 100 MG TABLET (FP) PO SCH (21:27)
[2018-02-27] MEDS: SUVOREXANT 10 MG TABLET PO PRN (21:28)
[2018-02-28] MEDS: diphenhydrAMINE HCL 25 MG CAPSULE (FP) PO PRN ×3 (06:29→21:12)
[2018-02-28] MEDS: CALAMINE 8% TOPICAL LOTION 177 ML BOTTLE TP PRN (06:29)
[2018-02-28] MEDS: NICOTINE 14 MG/24 HOURS TOPICAL PATCH TD SCH (09:31)
[2018-02-28] MEDS: PRENATAL VITAMINS W/ FOLIC ACID TABLET (FP) PO SCH (09:31)
[2018-02-28] MEDS: THIAMINE HCL 100 MG TABLET (FP) PO SCH (21:10)
[2018-02-28] MEDS: MELATONIN 5 MG TABLETS PO PRN (21:12)
[2018-03-01] MEDS: diphenhydrAMINE HCL 25 MG CAPSULE (FP) PO PRN ×3 (06:26→21:07)
[2018-03-01] MEDS: CALAMINE 8% TOPICAL LOTION 177 ML BOTTLE TP PRN (06:29)
[2018-03-01] MEDS: PRENATAL VITAMINS W/ FOLIC ACID TABLET (FP) PO SCH (09:55)
[2018-03-01] MEDS: NICOTINE 14 MG/24 HOURS TOPICAL PATCH TD SCH (09:55)
--- NOTE | 2018-03-01 16:08 | PN ---
[facility] Progress Note Note: Psychiatry Attending's note : Received request for renewal of belsomra. 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 No report of adverse effects. Belsomra 10 mg po hs prn. Re-ordered.
[2018-03-01] MEDS: THIAMINE HCL 100 MG TABLET (FP) PO SCH (21:06)
[2018-03-01] MEDS: SUVOREXANT 10 MG TABLET PO PRN (21:08)
[2018-03-02] MEDS: diphenhydrAMINE HCL 25 MG CAPSULE (FP) PO PRN ×3 (06:34→21:23)
[2018-03-02] MEDS: PRENATAL VITAMINS W/ FOLIC ACID TABLET (FP) PO SCH (09:38)
[2018-03-02] MEDS: NICOTINE 14 MG/24 HOURS TOPICAL PATCH TD SCH (09:38)
[2018-03-02] MEDS: CALAMINE 8% TOPICAL LOTION 177 ML BOTTLE TP PRN (09:39)
[2018-03-02] MEDS: THIAMINE HCL 100 MG TABLET (FP) PO SCH (21:22)
[2018-03-02] MEDS: SUVOREXANT 10 MG TABLET PO PRN (21:23)
[2018-03-03] MEDS: diphenhydrAMINE HCL 25 MG CAPSULE (FP) PO PRN ×3 (06:18→22:04)
[2018-03-03] MEDS: PRENATAL VITAMINS W/ FOLIC ACID TABLET (FP) PO SCH (09:31)
[2018-03-03] MEDS: NICOTINE 14 MG/24 HOURS TOPICAL PATCH TD SCH (09:32)
[2018-03-03] MEDS: CALAMINE 8% TOPICAL LOTION 177 ML BOTTLE TP PRN (09:33)
[2018-03-03] MEDS: COLLOIDAL OATMEAL 1 BAR EACH TP PRN (09:34)
[2018-03-03] MEDS: SUVOREXANT 10 MG TABLET PO PRN (22:04)
[2018-03-03] MEDS: THIAMINE HCL 100 MG TABLET (FP) PO SCH (22:04)
[2018-03-04] MEDS: diphenhydrAMINE HCL 25 MG CAPSULE (FP) PO PRN ×2 (06:29→14:48)
[2018-03-04] MEDS: CALAMINE 8% TOPICAL LOTION 177 ML BOTTLE TP PRN ×2 (06:30→09:36)
[2018-03-04] MEDS: NICOTINE 14 MG/24 HOURS TOPICAL PATCH TD SCH (09:36)
[2018-03-04] MEDS: PRENATAL VITAMINS W/ FOLIC ACID TABLET (FP) PO SCH (09:36)
--- NOTE | 2018-03-04 16:38 | PN ---
[facility] Progress Note Note: Patient c/o of right hand pain, tenderness to touch, reports two days ago he punched a wall. Vital Signs Temperature 97.7 F 03/04/18 06:43 Pulse Rate 67 03/04/18 06:43 Respiratory Rate 18 03/04/18 06:43 Blood Pressure 128/79 03/04/18 06:43 O2 Sat by Pulse Oximetry (%) Laboratory Last Values WBC 5.4 K/mm3 (4.0-10.0) D 02/20/18 09:07 RBC 5.79 M/mm3 (4.00-5.60) H 02/20/18 09:07 Hgb 16.3 GM/dL (11.7-16.9) D 02/20/18 09:07 Hct 48.6 % (35.4-49) D 02/20/18 09:07 MCV 83.9 fl (80-96) 02/20/18 09:07 MCH 28.1 pg (25.7-33.7) 02/20/18 09:07 MCHC 33.5 g/dl (32.0-35.9) 02/20/18 09:07 RDW 14.9 % (11.9-15.9) 02/20/18 09:07 Plt Count 126 K/MM3 (134-434) L 02/20/18 09:07 MPV 12.5 fl (7.5-11.1) H 02/20/18 09:07 Sodium 144 mmol/L (136-145) 02/20/18 09:07 Potassium 3.8 mmol/L (3.5-5.1) 02/20/18 09:07 Chloride 108 mmol/L (98-107) H 02/20/18 09:07 Carbon Dioxide 30 mmol/L (21-32) 02/20/18 09:07 Anion Gap 6 (8-16) L 02/20/18 09:07 BUN 11 mg/dL (7-18) 02/20/18 09:07 Creatinine 0.9 mg/dL (0.7-1.3) 02/20/18 09:07 Creat Clearance w eGFR > 60 (>60) 02/20/18 09:07 Random Glucose 82 mg/dL (74-106) D 02/20/18 09:07 Calcium 9.3 mg/dL (8.5-10.1) 02/20/18 09:07 Total Bilirubin 0.4 mg/dL (0.2-1.0) D 02/20/18 09:07 AST 11 U/L (15-37) L 02/20/18 09:07 ALT 12 U/L (12-78) 02/20/18 09:07 Alkaline Phosphatase 77 U/L (45-117) D 02/20/18 09:07 Total Protein 7.8 g/dl (6.4-8.2) 02/20/18 09:07 Albumin 4.0 g/dl (3.4-5.0) D 02/20/18 09:07 Urine Color [place] 02/20/18 00: Urine Appearance Cloudy 02/20/18 00: Urine pH 5.0 (5.0-8.0) D 02/20/18 00:01 Ur Specific [place] 1.027 (1.001-1.035) 02/20/18 00: Urine Protein Negative (NEGATIVE) 02/20/18 00: Urine Glucose (UA) Negative (NEGATIVE) 02/20/18 00: Urine Ketones Negative (NEGATIVE) 02/20/18 00: Urine Blood Negative (NEGATIVE) 02/20/18 00: Urine Nitrite Negative (NEGATIVE) 02/20/18 00: Urine Bilirubin Negative (<2.0 mg/dL) 02/20/18 00: Urine Urobilinogen 2.0 mg/dL (0.2-1.0) 02/20/18 00:01 Ur Leukocyte Esterase Negative (NEGATIVE) 02/20/18 00: RPR Titer Nonreactive (NONREACTIVE) 02/20/18 09:07 A/P AOx3 no apparent distress full ROM, + tenderness to touch and movement right hand no adventitious breath sounds skin intact, no joint effusion or erythema - right hand injury Plan: right hand x-ray ibuprofen PRN cold compress to area continue to monitor
[2018-03-04] MEDS ORDERED: SUVOREXANT 10 MG TABLET PO PRN (22:00)
[2018-03-04] MEDS: THIAMINE HCL 100 MG TABLET (FP) PO SCH (22:50)
[2018-03-05] MEDS: diphenhydrAMINE HCL 25 MG CAPSULE (FP) PO PRN ×2 (06:17→21:14)
[2018-03-05] MEDS: CALAMINE 8% TOPICAL LOTION 177 ML BOTTLE TP PRN ×2 (06:18→21:16)
[2018-03-05] MEDS: PRENATAL VITAMINS W/ FOLIC ACID TABLET (FP) PO SCH (09:45)
[2018-03-05] MEDS: NICOTINE 14 MG/24 HOURS TOPICAL PATCH TD SCH (09:46)
--- NOTE | 2018-03-05 15:12 | PN ---
Psychiatric Progress Note Vital Signs: Vital Signs Period Temp Pulse Resp BP Sys/Chau Pulse Ox Last 24 Hr 98.2 F 84 18-18 136/73 Date of Session: 03/05/18 Chief Complaint:: Discharge Note HPI: Patient addressing Cannabis Dependence comorbid with Nicotine Dependence and Subsrance-Induced Sleep Disorder ROS: Contact dermatitis Current Medications: Active Medications Generic Name Dose Route Start Last Admin Trade Name Freq PRN Reason Stop Dose Admin Acetaminophen 650 mg 02/19/18 21:10 Tylenol - PO Q4H PRN FEVER Al Hydroxide/Mg Hydroxide 30 ml 02/19/18 21:10 02/24/18 06:10 Mylanta Oral Suspension - PO 30 ml Q6H PRN Administration DYSPEPSIA Calamine 1 applic 02/19/18 21:42 03/05/18 06:18 Calamine 8% Topical Lotion - TP 1 applic QID PRN Administration FOR ITCHING Colloidal Oatmeal 1 applic 02/25/18 15:08 03/03/18 09:34 Aveeno Soap - TP 1 applic DAILY PRN Administration HYGEINE Diphenhydramine HCl 25 mg 02/20/18 15:23 03/05/18 06:17 Benadryl - PO 25 mg Q6H PRN Administration FOR ITCHING Eucalyptus/Menthol/Phenol/Sorbitol 1 each 02/19/18 21:10 Cepastat Lozenge - MM Q4H PRN SORE THROAT Guaifenesin 10 ml 02/19/18 21:10 Robitussin Dm - PO Q6H PRN COUGH Hydrocortisone 1 applic 02/19/18 21:07 Hytone 1% Cream - TP QID PRN FOR ITCHING Hydroxyzine Pamoate 50 mg 02/19/18 21:10 Vistaril - PO Q4H PRN AGITATION Ibuprofen 400 mg 02/19/18 21:10 Motrin - PO Q6H PRN Pain level 4-6 Loperamide HCl 4 mg 02/19/18 21:10 Imodium - PO Q6H PRN DIARRHEA Magnesium Citrate 300 ml 02/19/18 21:10 Citroma - PO Q48H PRN CONSTIPATION Magnesium Hydroxide 30 ml 02/19/18 21:10 Milk Of Magnesia - PO DAILY PRN CONSTIPATION Melatonin 5 mg 02/19/18 22:00 02/28/18 21:12 Melatonin PO 5 mg HS PRN Administration INSOMNIA Nicotine 14 mg 02/20/18 10:00 03/05/18 09:46 Nicoderm Patch - TD Not Given DAILY AUGUSTO Nicotine Polacrilex 2 mg 02/19/18 21:10 Nicorette Gum - BC Q2H PRN NICOTINE REPLACEMENT RX Multivit/Folic Acid/Iron 1 tab 02/20/18 10:00 03/05/18 09:45 Vitamins (Sjr) - PO 1 tab DAILY AUGUSTO Administration Pseudoephedrine/Triprolidine 1 combo 02/19/18 21:10 Actifed - PO TID PRN NASAL CONGESTION Simethicone 80 mg 02/27/18 15:44 02/27/18 21:27 Mylicon - PO 80 mg QID PRN Administration GAS Suvorexant 10 mg 03/04/18 22:00 Belsomra PO HS PRN INSOMNIA Thiamine HCl 100 mg 02/19/18 22:00 03/04/18 22:50 Vitamin B1 - PO Not Given HS AUGUSTO Current Side Effect: No Lab tests ordered: Yes Lab tests reviewed: Yes Provider note:: Patient will complete this program on 03/06/18. He has met his treatment goals and will continue to address his issues in outpatient treatment at [facility]. 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 He responded well to Belsomra for insomnia. He is stable for discharge on 03/06/18 Total face to face time:: 35 Mental Status Exam - Mental Status Exam Alert and Oriented to: Time, Place, Person Cognitive Function: Fair Patient Appearance: Well Groomed Mood: Hopeful, Euthymic Patient Behavior: Cooperative Speech Pattern: Clear Voice Loudness: Normal Thought Process: Intact, Goal Oriented Thought Disorder: Not Present Hallucinations: Denies Suicidal Ideation: Denies Homicidal Ideation: Denies Insight/Judgement: Fair Sleep: Fair Appetite: Good Muscle strength/Tone: Normal Gait/Station: Normal Psychiatric Treatment Plan - Problem List (1) Cannabis dependence Current Visit: Yes (2) Nicotine dependence Current Visit: Yes Qualifiers: Nicotine product type: cigarettes Substance use status: uncomplicated Qualified Code(s): F17.210 - Nicotine dependence, cigarettes, uncomplicated (3) Substance-induced sleep disorder Current Visit: Yes (4) Contact dermatitis Current Visit: Yes Qualifiers: Contact dermatitis type: irritant Contact dermatitis trigger: unspecified trigger Qualified Code(s): L24.9 - Irritant contact dermatitis, unspecified cause Initial treatment plan: Patient will be discharged tomorrow and referred to [facility] for outpatient treatment
[2018-03-05] MEDS: MELATONIN 5 MG TABLETS PO PRN (21:14)
[2018-03-05] MEDS: THIAMINE HCL 100 MG TABLET (FP) PO SCH (21:14)
[2018-03-06] MEDS: diphenhydrAMINE HCL 25 MG CAPSULE (FP) PO PRN (06:05)
[2018-03-06 07:01] VITALS: BP 147/70; PULSE 56; TEMP 97.8
[2018-03-06] MEDS: PRENATAL VITAMINS W/ FOLIC ACID TABLET (FP) PO SCH (09:40)
[2018-03-06] MEDS: CALAMINE 8% TOPICAL LOTION 177 ML BOTTLE TP PRN (09:40)
[2018-03-06] MEDS: NICOTINE 14 MG/24 HOURS TOPICAL PATCH TD SCH (09:41)
== END 2018-03-06 09:53 | disposition home or self-care (01) | DRG 772 ==
LOC: YASAS 15:40 → Y3W 21:35
PROVIDERS: ADMIT Psychiatry & Neurology Psychiatry; ATTEND Psychiatry & Neurology Psychiatry
PROC: HZ42ZZZ Group Counseling for Substance Abuse Treatment, Cognitive-Behavioral (ICD-10-PCS; principal; 2018-02-19)
DX: F12.20 Cannabis dependence, uncomplicated (principal); F17.210 Nicotine dependence, cigarettes, uncomplicated; F19.282 Other psychoactive substance dependence with psychoactive substance-induced sleep disorder; L24.9 Irritant contact dermatitis, unspecified cause; M79.641 Pain in right hand; R14.1 Gas pain; S69.91XA Unspecified injury of right wrist, hand and finger(s), initial encounter; W22.09XA Striking against other stationary object, initial encounter; Y93.89 Activity, other specified; Y92.9 Unspecified place or not applicable
CPT/HCPCS: 36415; 73110-TC-RT-FY; 73130-TC-RT-FY; 80053; 81003; 85027; 86593

== ENCOUNTER 2018-05-18 16:14 | Inpatient (IN) | payer OTHER ==
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
[2018-05-18] MEDS ORDERED: ONDANSETRON *ODT* 4 MG TABLET SL ONE (17:48)
[2018-05-18] MEDS ORDERED: LIDOCAINE VISCOUS 2% ORAL/TOP 20 ML UNIT-DOSE CUP MM ONE (17:48)
[2018-05-18] MEDS ORDERED: MAG HYDROX/AL HYDROX/SIMETH 30 ML UNIT-DOSE CUP PO ONE (17:48)
[2018-05-18] MEDS ORDERED: ACETAMINOPHEN 325 MG TABLET (FP) PO ONE (17:52)
[2018-05-18] MEDS ORDERED: SUCRALFATE 1 GM/10 ML UNIT DOSE CUPS PO ONE (17:52)
[2018-05-18] MEDS ORDERED: LIDOCAINE VISCOUS 2% ORAL/TOP 20 ML UNIT-DOSE CUP ONE (18:03)
[2018-05-18] MEDS ORDERED: ACETAMINOPHEN 325 MG TABLET (FP) ONE (18:03)
[2018-05-18] MEDS ORDERED: MAG HYDROX/AL HYDROX/SIMETH 30 ML UNIT-DOSE CUP ONE (18:04)
[2018-05-18] MEDS ORDERED: ONDANSETRON *ODT* 4 MG TABLET ONE (18:04)
[2018-05-18] MEDS ORDERED: SUCRALFATE 1 GM TABLET (FP) ONE (18:05)
[2018-05-18 18:24] LABS: HEMATOCRIT 40.6 % (35.4-49); HEMOGLOBIN 13.7 GM/dL (11.7-16.9); MCH 28.2 pg (25.7-33.7); MCHC 33.8 g/dl (32.0-35.9); MEAN CELL VOLUME 83.4 fl (80-96); MEAN PLT VOLUME 11.3 fl (7.5-11.1); PLATELET COUNT 118 K/MM3 (134-434); RBC 4.87 M/mm3 (4.00-5.60); RDW 14.8 % (11.9-15.9); WHITE BLOOD COUNT 12.1 K/mm3 (4.0-10.0)
[2018-05-18 18:47] LABS: ALBUMIN 3.3 g/dl (3.4-5.0); ALK PHOS 124 U/L (45-117); ANION GAP 7 (8-16); BILIRUBIN,TOTAL 0.9 mg/dL (0.2-1.0); BLOOD UREA NITROGEN 14 mg/dL (7-18); CALCIUM 8.8 mg/dL (8.5-10.1); CHLORIDE 108 mmol/L (98-107); CO2 30 mmol/L (21-32); GLUCOSE,RANDOM 91 mg/dL (74-106); LIPASE 146 U/L (73-393); POTASSIUM 4.5 mmol/L (3.5-5.1); SGOT/AST 181 U/L (15-37); SGPT/ALT 107 U/L (12-78); SODIUM 145 mmol/L (136-145); TOT PROT 6.6 g/dl (6.4-8.2)
--- NOTE | 2018-05-18 19:21 | PDOC ---
Attending Attestation - Resident Resident Name: Diogenes Sharma - ED Attending Attestation I have performed the following: I have examined & evaluated the patient, The case was reviewed & discussed with the resident, I agree w/resident's findings & plan, Exceptions are as noted - HPI HPI: 05/18/18 19:16 The patient is a 22 year old male, with no significant PMH, who presents to the emergency department with abdominal pain that began 2 hours ago. The patient describes the pain as constant, sharp and non radiating in nature located to the epigastric region accompanied with multiple episodes of vomiting. The patient states pain began after eating turkey. The patient reports he had similar episodes in the past and was diagnosed with ulcers. The patient also mentions he is currently taking Naproxen for his knee pain. The patient denies chest pain, shortness of breath, headache and dizziness.Denies fever, chills, diarrhea and constipation. Denies dysuria, frequency, urgency and hematuria. Allergies: NKDA Past surgical history: Right open reduction internal fracture Social history: Current smoker and marijuana user (Started smoking marijuana at age 12, consumes 10 blunts daily. Last smoked on 02/19/18). Denies alcohol use PCP: None reported - Physicial Exam PE: 05/18/18 19:22 "GENERAL: Awake, alert, and fully oriented, in no acute distress. HEAD: No signs of trauma EYES: PERRLA, EOMI, sclera anicteric, conjunctiva clear ENT: Auricles normal inspection, hearing grossly normal, nares patent, oropharynx clear without exudates. Moist mucosa NECK: Nontender, no stepoffs, Normal ROM, supple, no lymphadenopathy, JVD, or masses LUNGS: Breath sounds equal, clear to auscultation bilaterally. No wheezes, and no crackles HEART: Regular rate and rhythm, normal S1 and S2, no murmurs, rubs or gallops ABDOMEN: + epigastric TTP, normoactive bowel sounds. No guarding, no rebound. No masses EXTREMITIES: Normal range of motion, no edema. No clubbing or cyanosis. No cords, erythema, or tenderness NEUROLOGICAL: Cranial nerves II through XII intact. 5/5 strength and sensation in all extremities, Normal speech, normal gait, normal cerebellar function SKIN: Warm, Dry, normal turgor, no rashes or lesions noted." - Medical Decision Making 08/19/18 19:22 22 M with epigastric pain + vomiting. Likely gastritis vs PUD. No lower abdominal pain to suggest appy. Negative membreno's. - Labs, lipase - GI cocktail 05/18/18 19:22 Labs show elevated LFTs and leukocytosis Will obtain RUQ sono to r/o rupert 05/18/18 21:34 Pt with multiple gallstones, GB wall 3.6 mm Pt reassessed - reports persistent pain after meds, inability to tolerate PO. Will consult surgery and admit at this time. 05/18/18 21:[address] Feliciano, who will evaluate pt and recommends repeat LFTs in AM.
[2018-05-18] MEDS ORDERED: SODIUM CHLORIDE 1,000 ML IV SCH (22:15)
[2018-05-18 22:25] LABS: INR 1.17 (0.83-1.09); PROTHROMBIN TIME (PATIENT) 13.2 SEC (9.7-13.0)
[2018-05-18 22:28] LABS: ACTIVATED PTT 29.7 SECONDS (25.2-36.5)
[2018-05-18] MEDS ORDERED: ONDANSETRON 4 MG/2 ML VIAL IVPUSH PRN (22:51)
[2018-05-18] MEDS ORDERED: LACTATED RINGERS SOLUTION 1,000 ML IV SCH (23:00)
--- NOTE | 2018-05-18 23:08 | HP ---
CHIEF COMPLAINT: Abdominal pain/ vomiting PCP: HISTORY OF PRESENT ILLNESS: 22 yo male denies PMH other than GERD/PUD, presents with complaint of epigastric pain that began around 3:00 this afternoon. He states he ate some turkey and shortly after had sharp nonradiating pain and vomiting which he said was nonbloody and occured less than 5 times. He states that presently His pain is there but much improved. He currently does not endorse any n/v/d though received gastritis cocktail in ED. Denies fever, headache, chest pain, SOB, urinary symtoms ER course was notable for: (1) WBC 12.1, AST/ALT 181/107, alk phos 124, Normal limits lipase 146 (2) RUQ u/s noted cholelithiasis (3) Zofran, mylanta, sucralfate, oral lidocaine, tylenol Recent Travel: none PAST MEDICAL HISTORY: GERD/PUD PAST SURGICAL HISTORY: denies Social History: Smoking: current every day smoker Alcohol: denies Drugs: Every day marijuana user 10 blunts / day, claims last use in January Family History: Allergies No Known Allergies Allergy (Verified 02/19/18 21:27) HOME MEDICATIONS: Home Medications Medication Instructions Recorded Naproxen [Naprosyn] 500 mg PO PRN 05/18/18 REVIEW OF SYSTEMS CONSTITUTIONAL: Absent: fever, chills, diaphoresis, generalized weakness, malaise, loss of appetite, weight change HEENT: Absent: rhinorrhea, nasal congestion, throat pain, throat swelling, difficulty swallowing, mouth swelling, ear pain, eye pain, visual changes CARDIOVASCULAR: Absent: chest pain, syncope, palpitations, irregular heart rate, lightheadedness , peripheral edema RESPIRATORY: Absent: cough, shortness of breath, dyspnea with exertion, orthopnea, wheezing, stridor, hemoptysis GASTROINTESTINAL: abdominal pain, nausea, vomiting, Absent: abdominal distension, diarrhea, constipation, melena, hematochezia GENITOURINARY: Absent: dysuria, frequency, urgency, hesitancy, hematuria, flank pain, genital pain MUSCULOSKELETAL: Absent: myalgia, arthralgia, joint swelling, back pain, neck pain SKIN: Absent: rash, itching, pallor HEMATOLOGIC/IMMUNOLOGIC: Absent: easy bleeding, easy bruising, lymphadenopathy, frequent infections ENDOCRINE: Absent: unexplained weight gain, unexplained weight loss, heat intolerance, cold intolerance NEUROLOGIC: Absent: headache, focal weakness or paresthesias, dizziness, unsteady gait, seizure, mental status changes, bladder or bowel incontinence PSYCHIATRIC: Absent: anxiety, depression, suicidal or homicidal ideation, hallucinations. PHYSICAL EXAMINATION Vital Signs - 24 hr 05/18/18 05/18/18 16:50 21:38 Temperature 98.1 F Pulse Rate 55 L Pulse Rate [ 61 Apical] Respiratory 20 18 Rate Blood Pressure 128/82 Blood Pressure 130/76 [Right Arm] O2 Sat by Pulse 96 98 Oximetry (%) GENERAL: A&O, mildly unkempt, no acute distress HEAD: Normocephalic, atraumatic. EYES: PERRL, EOMI, no scleral icterus EARS, NOSE, THROAT: oropharynx clear without exudates. Moist mucous membranes. NECK: supple without lymphadenopathy LUNGS: CTA b/l, no crackles or wheezes HEART: Regular rate and rhythm, normal S1 and S2 without murmur, rub or gallop. ABDOMEN: Soft, Tender to palpation in epigastric region, Caraballo sign negative presently, normoactive bowel sounds MUSCULOSKELETAL: No bony deformities or tenderness. No CVA tenderness. UPPER EXTREMITIES: 2+ pulses, warm, well-perfused. No cyanosis. No clubbing. No peripheral edema. LOWER EXTREMITIES: 2+ pulses, warm, well-perfused. No calf tenderness. No peripheral edema. NEUROLOGICAL: Cranial nerves II-XII grossly intact. Normal speech. PSYCHIATRIC: Cooperative. Good eye contact. Appropriate mood and affect. SKIN: Warm, dry, normal turgor, no rashes or lesions noted Laboratory Results - last 24 hr 05/18/18 05/18/18 05/18/18 18:07 18:07 21:59 WBC 12.1 H RBC 4.87 Hgb 13.7 Hct 40.6 D MCV 83.4 MCH 28.2 MCHC 33.8 RDW 14.8 Plt Count 118 L MPV 11.3 H PT with INR 13.20 H INR 1.17 H PTT (Actin FS) 29.7 Sodium 145 Potassium 4.5 Chloride 108 H Carbon Dioxide 30 Anion Gap 7 L BUN 14 Creatinine 1.0 Creat Clearance w eGFR > 60 Random Glucose 91 Calcium 8.8 Total Bilirubin 0.9 AST 181 H D ALT 107 H D Alkaline Phosphatase 124 H Total Protein 6.6 Albumin 3.3 L Lipase 146 ASSESSMENT/PLAN: 22 yo male denies PMH other than GERD/PUD presents with sharp epigastric pain, n /v that began today. Pancreatitis vs viral gastroenteritis vs cholelithiasis/cholecystitis -clinical exam would indicate more likely pancreatitis, though current lipase noted 146 -RUQ u/s noted cholelithiasis with multiple gallstones present, no cholecytitis noted on u/s, though WBC noted at 12 -AST/ALT/Alk Phos: 181/107/124, no elevation of Tbili 0.9 -Lab and imaging point more towards cholithiasis, though early/mild pancreatitis can not be ruled out yet -ED discussed with surgery who will evaluate in AM -CT Chest/Abdomen -Will Cover with Unasyn 3 gm IV Q6 for now, pending CT results -LR @ 100 cc/hr for fluid resuscitation -Toradol PRN for pain control Perioperative optimization for possible elective cholecystectomy -Fluid resuscitation as above -ECG ordered -Type and Screen -CXR noted no acute lung pathology -UA/Urine Tox screen -Pain control with Toradol as above -NPO after midnight DVT Prophylaxis -Heparin 5000 units SQ TID, will hold as necessary if to go to OR FEN -Fluids: LR @ 100 cc/hr -Electrolytes: No electrolyte abnormalities, BMP in AM -Nutrition: NPO in case of OR, if pt not for OR, diet can be advanced as tolerated Disposition Observation Visit type - Emergency Visit Emergency Visit: Yes ED Registration Date: 05/18/18 Care time: The patient presented to the Emergency Department on the above date and was hospitalized for further evaluation of their emergent condition. - New Patient This patient is new to me today: Yes Date on this admission: 05/19/18 - Critical Care Critical Care patient: No Hospitalist Screening - Colonoscopy Questionnaire Colonoscopy Questionnaire: Colonoscopy Questionnaire - Patient: 50 - 75 years old and never had a screening colonoscopy: No History of colon or rectal polyps, or CA: No History of IBD, Crohn's disease or UC: No History of abdominal radiation therapy as a child: No - Relative: 1 with colon or rectal CA, or polyps at age 60 or younger: No Colon or rectal CA diagnosed at age 45 or younger: No Multiple relatives with colon or rectal CA: No - Outcome: Screening Result: Negative Screen
[2018-05-18] MEDS ORDERED: morphine CARPU-JECT 4 MG/1 ML DISP.SYRIN IVPUSH ONE (23:15)
[2018-05-18] MEDS: HEPARIN NA (PORCINE) 5,000 UNITS/ML 1ML VIAL SQ SCH (23:26)
[2018-05-18] MEDS ORDERED: MORPHINE SULFATE 2 MG/ML VIAL ONE (23:29)
[2018-05-18] MEDS ORDERED: HEPARIN NA (PORCINE) 5,000 UNITS/ML 1ML VIAL ONE (23:29)
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
[2018-05-19 01:00] LABS: URINE APPEARANCE CLEAR; URINE BILIRUBIN NEGATIVE (<2.0 mg/dL); URINE COLOR STRAW; URINE GLUCOSE (UA) NEGATIVE (NEGATIVE); URINE KETONE NEGATIVE (NEGATIVE); URINE LEUK ESTERASE NEGATIVE (NEGATIVE); URINE NITRITE NEGATIVE (NEGATIVE); URINE PROTEIN NEGATIVE (NEGATIVE); URINE UROBILINOGEN NEGATIVE mg/dL (0.2-1.0)
[2018-05-19 01:05] LABS: URINE MUCUS RARE
[2018-05-19] MEDS: AMPICILLIN NA/SULBACTAM NA 3 GM in SODIUM CHLORIDE 100 ML IVPB SCH ×4 (02:15→22:39)
[2018-05-19] MEDS: LACTATED RINGERS SOLUTION 1,000 ML IV SCH ×3 (02:15→23:10)
[2018-05-19 06:37] LABS: BASO % 0.6 % (0-2.0); EOS % 1.6 % (0-4.5); HEMATOCRIT 39.4 % (35.4-49); HEMOGLOBIN 13.5 GM/dL (11.7-16.9); LYMPH % 17.1 % (8-40); MCH 28.6 pg (25.7-33.7); MCHC 34.2 g/dl (32.0-35.9); MEAN CELL VOLUME 83.7 fl (80-96); MONO % 11.7 % (3.8-10.2); PLATELET COUNT 104 K/MM3 (134-434); RBC 4.71 M/mm3 (4.00-5.60); RDW 14.3 % (11.9-15.9)
[2018-05-19 06:52] LABS: AMYLASE 46 U/L (25-115); ANION GAP 5 (8-16); BILIRUBIN,TOTAL 0.6 mg/dL (0.2-1.0); BLOOD UREA NITROGEN 11 mg/dL (7-18); CALCIUM 8.4 mg/dL (8.5-10.1); CHLORIDE 109 mmol/L (98-107); CO2 31 mmol/L (21-32); CREATININE 0.8 mg/dL (0.7-1.3); GLUCOSE,RANDOM 74 mg/dL (74-106); MAGNESIUM 1.9 mg/dL (1.8-2.4); PHOSPHOROUS 3.4 mg/dL (2.5-4.9); POTASSIUM 3.7 mmol/L (3.5-5.1); SGOT/AST 60 U/L (15-37); SGPT/ALT 84 U/L (12-78); SODIUM 145 mmol/L (136-145)
[2018-05-19 06:53] LABS: ALK PHOS 102 U/L (45-117)
[2018-05-19] MEDS: HEPARIN NA (PORCINE) 5,000 UNITS/ML 1ML VIAL SQ SCH ×3 (07:00→22:39)
[2018-05-19] MEDS: KETOROLAC TROMETHAMINE 15 MG/ML VIAL IVPUSH PRN ×2 (07:01→13:02)
[2018-05-19] MEDS ORDERED: KETOROLAC TROMETHAMINE 15 MG/ML VIAL ONE ×2 (07:03→12:40)
--- NOTE | 2018-05-19 09:34 | EKG ---
Test Reason : Blood Pressure : / mmHG Vent. Rate : 044 BPM Atrial Rate : 044 BPM P-R Int : 132 ms QRS Dur : 100 ms QT Int : 456 ms P-R-T Axes : 049 060 051 degrees QTc Int : 389 ms MARKED SINUS BRADYCARDIA ABNORMAL ECG WHEN COMPARED WITH ECG OF 25-DEC-2017 22:16, VENT. RATE HAS DECREASED BY 24 BPM Confirmed by ERIKA SETH MD ([id number]) on 05/19/2018 9:34:15 AM Referred By: Confirmed By:ERIKA SETH MD
[2018-05-19 11:35] LABS: URINE APPEARANCE CLEAR; URINE BILIRUBIN NEGATIVE (<2.0 mg/dL); URINE COLOR LTYELLOW; URINE GLUCOSE (UA) NEGATIVE (NEGATIVE); URINE KETONE TRACE (NEGATIVE); URINE LEUK ESTERASE NEGATIVE (NEGATIVE); URINE NITRITE NEGATIVE (NEGATIVE); URINE PROTEIN NEGATIVE (NEGATIVE); URINE UROBILINOGEN NEGATIVE mg/dL (0.2-1.0)
[2018-05-19 11:47] LABS: EPI CELLS RARE /HPF (FEW); URINE BACTERIA RARE /hpf (NONE SEEN); URINE MUCUS RARE
[2018-05-19 11:50] LABS: COCAINE, UR NEGATIVE ng/ml (CUTOFF=300); METHADONE, UR NEGATIVE ng/ml (CUTOFF=300); PHENCYCLIDINE,URINE NEGATIVE ng/ml (CUTOFF=25); URINE AMPHETAMINES NEGATIVE ng/ml (CUTOFF=500); URINE BARBITURATES NEGATIVE ng/ml (CUTOFF=200); URINE BENZODIAZEPINES NEGATIVE ng/ml (CUTOFF=200)
[2018-05-19 11:58] LABS: OPIATES, URI POSITIVE ng/ml (CUTOFF=300)
--- NOTE | 2018-05-19 12:24 | PN ---
Physical Exam: SUBJECTIVE: Patient seen and examined at bedside. Denies chest pain, shortness of breath, headache. Admits to mild nausea, but no vomiting since admission. Denies urinary/bowel symptoms. Admits to epigastric pain that is worse with spicy and acidic foods. Of note, pt admitted to unintentional 20 lb weight loss over the past several months. He admits to taking amoxicillin and "2 other meds " in the past. OBJECTIVE: Vital Signs Temperature 98.6 F 05/19/18 09:18 Pulse Rate 54 L 05/19/18 09:18 Respiratory Rate 20 05/19/18 09:18 Blood Pressure 129/71 05/19/18 09:18 O2 Sat by Pulse Oximetry (%) 98 05/18/18 21:38 GENERAL: A&O, mildly unkempt, no acute distress HEAD: Normocephalic, atraumatic. EYES: PERRL, EOMI, no scleral icterus EARS, NOSE, THROAT: oropharynx clear without exudates. Moist mucous membranes. NECK: supple without lymphadenopathy LUNGS: CTA b/l, no crackles or wheezes HEART: Regular rate and rhythm, normal S1 and S2 without murmur, rub or gallop. ABDOMEN: Soft, Tender to palpation in epigastric region, Caraballo sign negative presently, normoactive bowel sounds MUSCULOSKELETAL: No bony deformities or tenderness. No CVA tenderness. UPPER EXTREMITIES: 2+ pulses, warm, well-perfused. No cyanosis. No clubbing. No peripheral edema. LOWER EXTREMITIES: 2+ pulses, warm, well-perfused. No calf tenderness. No peripheral edema. NEUROLOGICAL: Cranial nerves II-XII grossly intact. Normal speech. PSYCHIATRIC: Cooperative. Good eye contact. Appropriate mood and affect. SKIN: Warm, dry, normal turgor, no rashes or lesions noted CBC, BMP 05/19/18 06:10 05/19/18 06:10 Hepatic Panel Total Bilirubin 0.6 mg/dL (0.2-1.0) 05/19/18 06:10 AST 60 U/L (15-37) H D 05/19/18 06:10 ALT 84 U/L (12-78) H D 05/19/18 06:10 Alkaline Phosphatase 102 U/L (45-117) D 05/19/18 06:10 Albumin 3.0 g/dl (3.4-5.0) L 05/19/18 06:10 Active Medications Heparin Sodium (Porcine) (Heparin -) 5,000 unit SQ TID [facility] Last Admin: 05/19/18 07:00 Dose: 5,000 unit Lactated Ringer's (Lactated Ringers Solution) 1,000 mls @ 100 mls/hr IV ASDIR [facility] Last Admin: 05/19/18 02:15 Dose: 100 mls/hr Ampicillin Sodium/Sulbactam (Sodium 3 gm/ Sodium Chloride) 100 mls @ 200 mls/ hr IVPB Q6H-IV [facility] Last Admin: 05/19/18 10:18 Dose: 200 mls/hr Ketorolac Tromethamine (Toradol Injection -) 15 mg IVPUSH Q6H PRN PRN Reason: PAIN LEVEL 6-10 Stop: 05/23/18 23:31 Last Admin: 05/19/18 07:01 Dose: 15 mg Ondansetron HCl (Zofran Injection) 4 mg IVPUSH Q6H PRN PRN Reason: NAUSEA IMAGING: CXR: No acute chest pathology. No sign of pneumoperitoneum. CT Abd w/o contrast: Cholelithiasis. The gallbladder is markedly contracted which may be secondary to chronic cholecystitis versus representing physiologic change. If clinically indicated correlate with two-week follow-up sonography with optimal preparative fasting. Mild splenomegaly. 3 mm nonobstructing right renal calculus. 1 mm nonobstructing left renal calculus. The pancreas demonstrates no discrete noncontrast abnormality. Mild acute pancreatitis may not be evident on CT. RUQ U/S: Cholelithiasis is seen. The gallbladder is contracted which may be secondary to chronic cholecystitis versus representing physiologic change. If clinically indicated correlate with two-week follow-up sonography with optimal preparative fasting. There is no definite biliary tract dilatation. Possible diffuse hepatic steatosis. Utox: +for opiates and marijuana ASSESSMENT/PLAN: 22M w/ pmhx of GERD/PUD who presented in the ED with sharp epigastric pain associated with nausea and vomiting. #Pancreatitis vs viral gastroenteritis vs cholelithiasis/cholecystitis; LFTs trending down. WBC wnl. -Per surg: HIDA scan not needed. May give diet. -RUQ U/S noted cholelithiasis with multiple gallstones present, no cholecystitis noted on u/s, though WBC noted at 12 -CTAP noted cholelithiasis, but mild acute pancreatitis may not be evident on CT -cont Unasyn 3 gm IV Q6 for now -Toradol 15mg IVP Q6H PRN for pain -Zofran 4mg IVP Q6H for nausea -LR @ 100cc/hr for fluid resuscitation -f/u GI recs #hx of GERD/PUD; Pt admits to an unintentional 20 lb weight loss over the past several months. -Protonix 40 mg PO QD -Pt reports he used to take Amoxicillin and two other drugs; possible history of H. Pylori, but pt is unsure. 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 - New Patient This patient is new to me today: Yes Date on this admission: 05/19/18 - Critical Care Critical Care patient: No
--- NOTE | 2018-05-19 15:22 | CON.GI ---
Consult Consult Specialty:: GI Reason for Consultation:: vomiting - History of Present Illness History of Present Illness: Chart reviewed. Events noted. Per initial intake: 22 yo male denies PMH other than GERD/PUD, presents with complaint of epigastric pain that began around 3:00 this afternoon. He states he ate some turkey and shortly after had sharp nonradiating pain and vomiting which he said was nonbloody and occured less than 5 times. He states that presently His pain is there but much improved. He currently does not endorse any n/v/d though received gastritis cocktail in ED. Denies fever, headache, chest pain, SOB, urinary symtoms ER course was notable for: (1) WBC 12.1, AST/ALT 181/107, alk phos 124, Normal limits lipase 146 (2) RUQ u/s noted cholelithiasis (3) Zofran, mylanta, sucralfate, oral lidocaine, tylenol At the time of this encounter, the patient appeared not in distress, c/o mild epigastric pain. Reported no jaundice, fever, chills, or changes in bowels prior to ED. No dysphagia, odyno[phagia. No recent ETOH. No chronci NSAIDs. No recent recurrent, postprandial RUQ/Epig symptoms. Asymptomatic after a regular diet for lunch. Non-contrast CT A: Cholelithiasis. The gallbladder is markedly contracted which may be secondary to chronic cholecystitis versus representing physiologic change. If clinically indicated correlate with two-week followup sonography with optimal preparative fasting. Mild splenomegaly. 3 mm nonobstructing right renal calculus. 1 mm nonobstructing left renal calculus. The pancreas demonstrates no discrete noncontrast abnormality. Mild acute pancreatitis may not be evident on CT. US liver: Cholelithiasis is seen. The gallbladder is contracted which may be secondary to chronic cholecystitis versus representing physiologic change. If clinically indicated correlate with two- week follow-up sonography with optimal preparative fasting. There is no definite biliary tract dilatation. Possible diffuse hepatic steatosis. - Alcohol/Substance Use Hx Alcohol Use: No - Smoking History Smoking history: Never smoked Have you smoked in the past 12 months: Yes Aproximately how many cigarettes per day: 10 Home Medications - Allergies Allergies/Adverse Reactions: Allergies Allergy/AdvReac Type Severity Reaction Status Date / Time No Known Allergies Allergy Verified 05/23/18 21:27 - Home Medications Home Medications: Ambulatory Orders Naproxen [Naprosyn] 500 mg PO PRN 05/18/18 Family Disease History - Family Disease History Family History: Unremarkable (non-contrib) Review of Systems Findings/Remarks: As per HPI, ED, H&P Physical Exam-GI Vital Signs: Vital Signs Temperature 98.6 F 05/19/18 09:18 Pulse Rate 54 L 05/19/18 09:18 Respiratory Rate 20 05/19/18 09:18 Blood Pressure 129/71 05/19/18 09:18 O2 Sat by Pulse Oximetry (%) 98 05/18/18 21:38 Labs: CBC, BMP 05/19/18 06:10 05/19/18 06:10 INR, PTT INR 1.17 (0.83-1.09) H 05/18/18 21:59 Imaging - Results Cat Scan: Report Reviewed Ultrasound: Report Reviewed Problem List - Problems (1) Gastroenteritis Code(s): K52.9 - NONINFECTIVE GASTROENTERITIS AND COLITIS, UNSPECIFIED (2) Symptomatic cholelithiasis Code(s): K80.20 - CALCULUS OF GALLBLADDER W/O CHOLECYSTITIS W/O OBSTRUCTION Assessment/Plan A 22M with cholelithiasis, postprandial nausea, vomiting, elevated liver chemistry and normal lipase. The liver enzymes are trending down - ?passed stone vs responding to Abx. Continue current care, surgical follow up for possible cholecytectomy. Discussed with the patient. Daily CBC, CMP, direct bili. Diet as per Surgery
--- NOTE | 2018-05-19 16:26 | PN ---
Teaching Attending Note Name of Resident: Francheska Jalloh ATTENDING PHYSICIAN STATEMENT I saw and evaluated the patient. I reviewed the resident's note and discussed the case with the resident. I agree with the resident's findings and plan as documented. SUBJECTIVE: Patient is a 22yo male presented to ED.c/o abdominal pain, midepgastric area. as per patient had a similar epidosode 3 yrs ago and was found to have H.Pylori where he was given 3 antibiotics afterward the pain resolved as the patient. No fever or chills. OBJECTIVE: Vital Signs Temperature 98.5 F 05/19/18 16:04 Pulse Rate 50 L 05/19/18 16:04 Respiratory Rate 20 05/19/18 16:04 Blood Pressure 124/72 05/19/18 16:04 O2 Sat by Pulse Oximetry (%) 98 05/18/18 21:38 CBCD WBC 7.0 K/mm3 (4.0-10.0) 05/19/18 06:10 RBC 4.71 M/mm3 (4.00-5.60) 05/19/18 06:10 Hgb 13.5 GM/dL (11.7-16.9) 05/19/18 06:10 Hct 39.4 % (35.4-49) 05/19/18 06:10 MCV 83.7 fl (80-96) 05/19/18 06:10 MCHC 34.2 g/dl (32.0-35.9) 05/19/18 06:10 RDW 14.3 % (11.9-15.9) 05/19/18 06:10 Plt Count 104 K/MM3 (134-434) L 05/19/18 06:10 MPV 12.0 fl (7.5-11.1) H 05/19/18 06:10 CMP Sodium 145 mmol/L (136-145) 05/19/18 06:10 Potassium 3.7 mmol/L (3.5-5.1) 05/19/18 06:10 Chloride 109 mmol/L (98-107) H 05/19/18 06:10 Carbon Dioxide 31 mmol/L (21-32) 05/19/18 06:10 Anion Gap 5 (8-16) L 05/19/18 06:10 BUN 11 mg/dL (7-18) 05/19/18 06:10 Creatinine 0.8 mg/dL (0.7-1.3) 05/19/18 06:10 Creat Clearance w eGFR > 60 (>60) 05/19/18 06:10 Random Glucose 74 mg/dL (74-106) 05/19/18 06:10 Calcium 8.4 mg/dL (8.5-10.1) L 05/19/18 06:10 Total Bilirubin 0.6 mg/dL (0.2-1.0) 05/19/18 06:10 AST 60 U/L (15-37) H D 05/19/18 06:10 ALT 84 U/L (12-78) H D 05/19/18 06:10 Alkaline Phosphatase 102 U/L (45-117) D 05/19/18 06:10 Total Protein 6.0 g/dl (6.4-8.2) L 05/19/18 06:10 Albumin 3.0 g/dl (3.4-5.0) L 05/19/18 06:10 Current Medications Generic Name Dose Route Start Last Admin Trade Name Freq PRN Reason Stop Dose Admin Heparin Sodium (Porcine) 5,000 unit 05/18/18 23:00 05/19/18 13:37 Heparin - SQ 5,000 unit TID [facility] Administration Lactated Ringer's 1,000 mls @ 100 mls/hr 05/18/18 23:08 05/19/18 13:46 Lactated Ringers Solution IV 100 mls/hr ASDIR [facility] Administration Ampicillin Sodium/Sulbactam 100 mls @ 200 mls/hr 05/19/18 03:00 05/19/18 15: 11 Sodium 3 gm/ Sodium Chloride IVPB 200 mls/hr Q6H-IV [facility] Administration Ketorolac Tromethamine 15 mg 05/18/18 23:32 05/19/18 13:02 Toradol Injection - IVPUSH 05/23/18 23:31 15 mg Q6H PRN Administration PAIN LEVEL 6-10 Ondansetron HCl 4 mg 05/18/18 22:51 Zofran Injection IVPUSH Q6H PRN NAUSEA Pantoprazole Sodium 40 mg 05/19/18 15:15 Protonix - PO DAILY [facility] Urine Test Results Urine Color Ltyellow 05/19/18 11:31 Urine Appearance Clear 05/19/18 11:31 Urine pH 7.0 (5.0-8.0) 05/19/18 11:31 Ur Specific Lawler 1.014 (1.001-1.035) 05/19/18 11:31 Urine Protein Negative (NEGATIVE) 05/19/18 11:31 Urine Glucose (UA) Negative (NEGATIVE) 05/19/18 11:31 Urine Ketones Trace (NEGATIVE) H 05/19/18 11:31 Urine Blood 2+ (NEGATIVE) H 05/19/18 11:31 Urine Nitrite Negative (NEGATIVE) 05/19/18 11:31 Urine Bilirubin Negative (<2.0 mg/dL) 05/19/18 11:31 Ur Leukocyte Esterase Negative (NEGATIVE) 05/19/18 11:31 Ur Epithelial Cells Rare /HPF (FEW) 05/19/18 11:31 Urine Bacteria Rare /hpf (NONE SEEN) 05/19/18 11:31 Urine Mucus Rare 05/19/18 11:31 Utox: +for opiates and marijuana PE: No abdominal tenderness rest of PE per the resident's note CXR: No acute chest pathology. No sign of pneumoperitoneum. CT Abd w/o contrast: Cholelithiasis. The gallbladder is markedly contracted which may be secondary to chronic cholecystitis versus representing physiologic change. If clinically indicated correlate with two-week follow-up sonography with optimal preparative fasting. Mild splenomegaly. 3 mm nonobstructing right renal calculus. 1 mm nonobstructing left renal calculus. The pancreas demonstrates no discrete noncontrast abnormality. Mild acute pancreatitis may not be evident on CT. RUQ U/S: Cholelithiasis is seen. The gallbladder is contracted which may be secondary to chronic cholecystitis versus representing physiologic change. If clinically indicated correlate with two-week follow-up sonography with optimal preparative fasting. There is no definite biliary tract dilatation. Possible diffuse hepatic steatosis. Laboratory Tests 05/18/18 05/19/18 18:07 06:10 Chloride 108 H 109 H AST 181 H D 60 H D ALT 107 H D 84 H D Alkaline Phosphatase 124 H 102 D Albumin 3.3 L 3.0 L Total Amylase 46 Lipase 146 ASSESSMENT AND PLAN: Patient is a 22yo male with PMHx of GERD/PUD who presented in the ED with mid- epigastric pain associated with nausea and vomiting. #Acute midepigatric pain with chronic cholelithiasis possible passage of the stone LFTs trending down. WBC wnl. #hx of PUD with H.Pylori will place him on the Protonix , further w/u as an outpatient. 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
[2018-05-19 18:04] VITALS: BMI 23.8
[2018-05-19] MEDS: PANTOPRAZOLE 40 MG TABLET (FP) PO SCH (18:09)
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
[2018-05-19] MEDS ORDERED: PT OWN MED DRAWER 7, Y5N ONE (20:57)
[2018-05-20] MEDS: AMPICILLIN NA/SULBACTAM NA 3 GM in SODIUM CHLORIDE 100 ML IVPB SCH ×2 (01:59→11:16)
[2018-05-20] MEDS: LACTATED RINGERS SOLUTION 1,000 ML IV SCH ×3 (05:49→23:00)
[2018-05-20] MEDS: HEPARIN NA (PORCINE) 5,000 UNITS/ML 1ML VIAL SQ SCH (05:56)
[2018-05-20 06:06] LABS: HEP.C VIRUS AB <0.1 s/co ratio (0.0-0.9)
[2018-05-20] MEDS ORDERED: traMADol HCL 50 MG TABLET PO PRN (07:05)
[2018-05-20 08:20] LABS: HEMATOCRIT 44.2 % (35.4-49); HEMOGLOBIN 14.8 GM/dL (11.7-16.9); MCH 27.9 pg (25.7-33.7); MCHC 33.5 g/dl (32.0-35.9); MEAN CELL VOLUME 83.4 fl (80-96); PLATELET COUNT 102 K/MM3 (134-434); RBC 5.29 M/mm3 (4.00-5.60); RDW 14.7 % (11.9-15.9); WHITE BLOOD COUNT 7.8 K/mm3 (4.0-10.0)
[2018-05-20 08:49] LABS: ALBUMIN 3.1 g/dl (3.4-5.0); ANION GAP 7 (8-16); BLOOD UREA NITROGEN 7 mg/dL (7-18); CALCIUM 8.9 mg/dL (8.5-10.1); CHLORIDE 108 mmol/L (98-107); CO2 30 mmol/L (21-32); GLUCOSE,RANDOM 75 mg/dL (74-106); SODIUM 145 mmol/L (136-145)
[2018-05-20 08:52] LABS: ALK PHOS 123 U/L (45-117); BILIRUBIN,TOTAL 0.6 mg/dL (0.2-1.0); CREATININE 0.6 mg/dL (0.7-1.3); SGOT/AST 59 U/L (15-37); SGPT/ALT 102 U/L (12-78); TOT PROT 6.4 g/dl (6.4-8.2)
--- NOTE | 2018-05-20 09:26 | PN ---
Teaching Attending Note Name of Resident: Francheska Jalloh ATTENDING PHYSICIAN STATEMENT I saw and evaluated the patient. I reviewed the resident's note and discussed the case with the resident. I agree with the resident's findings and plan as documented. SUBJECTIVE: Patient is c/o having mid-epigastric pain. OBJECTIVE: Vital Signs Temperature 97.2 F L 05/20/18 06:00 Pulse Rate 51 L 05/20/18 06:00 Respiratory Rate 18 05/20/18 06:00 Blood Pressure 117/76 05/20/18 06:00 O2 Sat by Pulse Oximetry (%) 99 05/19/18 23:52 CBCD WBC 7.8 K/mm3 (4.0-10.0) 05/20/18 07:25 RBC 5.29 M/mm3 (4.00-5.60) 05/20/18 07:25 Hgb 14.8 GM/dL (11.7-16.9) 05/20/18 07:25 Hct 44.2 % (35.4-49) 05/20/18 07:25 MCV 83.4 fl (80-96) 05/20/18 07:25 MCHC 33.5 g/dl (32.0-35.9) 05/20/18 07:25 RDW 14.7 % (11.9-15.9) 05/20/18 07:25 Plt Count 102 K/MM3 (134-434) L 05/20/18 07:25 MPV 11.0 fl (7.5-11.1) 05/20/18 07:25 CMP Sodium 145 mmol/L (136-145) 05/20/18 07:25 Potassium 4.0 mmol/L (3.5-5.1) 05/20/18 07:25 Chloride 108 mmol/L (98-107) H 05/20/18 07:25 Carbon Dioxide 30 mmol/L (21-32) 05/20/18 07:25 Anion Gap 7 (8-16) L 05/20/18 07:25 BUN 7 mg/dL (7-18) 05/20/18 07:25 Creatinine 0.6 mg/dL (0.7-1.3) L 05/20/18 07:25 Creat Clearance w eGFR > 60 (>60) 05/20/18 07:25 Random Glucose 75 mg/dL (74-106) 05/20/18 07:25 Calcium 8.9 mg/dL (8.5-10.1) 05/20/18 07:25 Total Bilirubin 0.6 mg/dL (0.2-1.0) 05/20/18 07:25 AST 59 U/L (15-37) H 05/20/18 07:25 ALT 102 U/L (12-78) H D 05/20/18 07:25 Alkaline Phosphatase 123 U/L (45-117) H D 05/20/18 07:25 Total Protein 6.4 g/dl (6.4-8.2) 05/20/18 07:25 Albumin 3.1 g/dl (3.4-5.0) L 05/20/18 07:25 Current Medications Generic Name Dose Route Start Last Admin Trade Name Freq PRN Reason Stop Dose Admin Heparin Sodium (Porcine) 5,000 unit 05/18/18 23:00 05/20/18 05:56 Heparin - SQ 5,000 unit TID [facility] Administration Lactated Ringer's 1,000 mls @ 100 mls/hr 05/18/18 23:08 05/20/18 05:49 Lactated Ringers Solution IV 100 mls/hr ASDIR [facility] Administration Ampicillin Sodium/Sulbactam 100 mls @ 200 mls/hr 05/19/18 03:00 05/20/18 01: 59 Sodium 3 gm/ Sodium Chloride IVPB 200 mls/hr Q6H-IV [facility] Administration Ondansetron HCl 4 mg 05/18/18 22:51 Zofran Injection IVPUSH Q6H PRN NAUSEA Pantoprazole Sodium 40 mg 05/19/18 15:15 05/19/18 18:09 Protonix - PO 40 mg DAILY [facility] Administration Tramadol HCl 25 mg 05/20/18 07:05 Ultram - PO Q6H PRN PAIN LEVEL 6-10 Home Medications Medication Instructions Recorded Naproxen [Naprosyn] 500 mg PO PRN 05/18/18 Buspirone HCl [Buspar -] 10 mg PO DAILY 05/20/18 Mirtazapine 15 mg PO DAILY 05/20/18 Quetiapine Fumarate [Seroquel -] 50 mg PO DAILY 05/20/18 PE: mild midepigastric tenderness rest of PE per the resident's note CXR: No acute chest pathology. No sign of pneumoperitoneum. CT Abd w/o contrast: Cholelithiasis. The gallbladder is markedly contracted which may be secondary to chronic cholecystitis versus representing physiologic change. If clinically indicated correlate with two-week follow-up sonography with optimal preparative fasting. Mild splenomegaly. 3 mm nonobstructing right renal calculus. 1 mm nonobstructing left renal calculus. The pancreas demonstrates no discrete noncontrast abnormality. Mild acute pancreatitis may not be evident on CT. RUQ U/S: Cholelithiasis is seen. The gallbladder is contracted which may be secondary to chronic cholecystitis versus representing physiologic change. If clinically indicated correlate with two-week follow-up sonography with optimal preparative fasting. There is no definite biliary tract dilatation. Possible diffuse hepatic steatosis. Laboratory Tests 05/18/18 05/19/18 18:07 06:10 Chloride 108 H 109 H AST 181 H D 60 H D ALT 107 H D 84 H D Alkaline Phosphatase 124 H 102 D Albumin 3.3 L 3.0 L Total Amylase 46 Lipase 146 Laboratory Tests 05/18/18 05/19/18 05/19/18 18:07 06:10 11:31 Chloride 108 H 109 H AST 181 H D 60 H D ALT 107 H D 84 H D Alkaline Phosphatase 124 H 102 D Albumin 3.3 L 3.0 L Total Amylase 46 Lipase 146 Opiates Screen Positive Methadone Screen Negative Barbiturate Screen Negative Phencyclidine Screen Negative Ur Amphetamines Screen Negative MDMA (Ecstasy) Screen Negative Benzodiazepines Screen Negative Cocaine Screen Negative U Marijuana (THC) Screen Positive ASSESSMENT AND PLAN: Patient is a 22yo male with PMHx of GERD/PUD who presented in the ED with mid- epigastric pain associated with nausea and vomiting. #Acute midepigatric pain with chronic cholelithiasis possible passage of the stone. LFTs elevated today, discussed with the surgeon and .will order mrcp #Hx of PUD with H. Pylori will place him on the Protonix, further w/u as an outpatient if the mrcp is negative. Breath test for h.pylori as an outpatient #Tobacco and Marijuana and opiates positive: Use extension course counselor patient on smoking cessation #DVT Ppx: Heparin
[2018-05-20 10:43] LABS: BILIRUBIN,DIRECT 0.2 mg/dL (0.0-0.2)
[2018-05-20] MEDS: PANTOPRAZOLE 40 MG TABLET (FP) PO SCH ×3 (11:16→22:06)
--- NOTE | 2018-05-20 11:40 | PN ---
Progress Note (short form) - Note Progress Note: surgery Pt seen and examined. still with epigastric pain. lfts slightly worse today. placed on regular diet by medical team and tolerating. afebrile abd- soft, minimal epigastric tenderness Plan- no acute cholecystitis. plt still dropping. abnormal lfts/possible choledocholithiasis per gi dropping plt per medicine/hematology will follow as outpt once medical issues addressed. pt would benefit from eventual cholecystectomy
--- NOTE | 2018-05-20 13:19 | PN ---
Physical Exam: SUBJECTIVE: Patient seen and examined at bedside. No acute events overnight. OBJECTIVE: Vital Signs Temperature 97.2 F L 05/20/18 06:00 Pulse Rate 51 L 05/20/18 06:00 Respiratory Rate 18 05/20/18 06:00 Blood Pressure 117/76 05/20/18 06:00 O2 Sat by Pulse Oximetry (%) 99 05/19/18 23:52 GENERAL: A&O, mildly unkempt, no acute distress HEAD: Normocephalic, atraumatic. EYES: PERRL, EOMI, no scleral icterus EARS, NOSE, THROAT: oropharynx clear without exudates. Moist mucous membranes. NECK: supple without lymphadenopathy LUNGS: CTA b/l, no crackles or wheezes HEART: Regular rate and rhythm, normal S1 and S2 without murmur, rub or gallop. ABDOMEN: Soft, Tender to palpation in epigastric region, Caraballo sign negative presently, normoactive bowel sounds MUSCULOSKELETAL: No bony deformities or tenderness. No CVA tenderness. UPPER EXTREMITIES: 2+ pulses, warm, well-perfused. No cyanosis. No clubbing. No peripheral edema. LOWER EXTREMITIES: 2+ pulses, warm, well-perfused. No calf tenderness. No peripheral edema. NEUROLOGICAL: Cranial nerves II-XII grossly intact. Normal speech. PSYCHIATRIC: Cooperative. Good eye contact. Appropriate mood and affect. SKIN: Warm, dry, normal turgor, no rashes or lesions noted CBC, BMP 05/20/18 07:25 05/20/18 07:25 Hepatic Panel Total Bilirubin 0.6 mg/dL (0.2-1.0) 05/20/18 07:25 Direct Bilirubin 0.2 mg/dL (0.0-0.2) 05/20/18 07:25 AST 59 U/L (15-37) H 05/20/18 07:25 ALT 102 U/L (12-78) H D 05/20/18 07:25 Alkaline Phosphatase 123 U/L (45-117) H D 05/20/18 07:25 Albumin 3.1 g/dl (3.4-5.0) L 05/20/18 07:25 Active Medications Lactated Ringer's (Lactated Ringers Solution) 1,000 mls @ 100 mls/hr IV ASDIR AUGUSTO Last Admin: 05/20/18 05:49 Dose: 100 mls/hr Pantoprazole Sodium (Protonix -) 40 mg PO BID AUGUSTO Last Admin: 05/20/18 11:16 Dose: 40 mg IMAGING: CXR: No acute chest pathology. No sign of pneumoperitoneum. CT Abd w/o contrast: Cholelithiasis. The gallbladder is markedly contracted which may be secondary to chronic cholecystitis versus representing physiologic change. If clinically indicated correlate with two-week follow-up sonography with optimal preparative fasting. Mild splenomegaly. 3 mm nonobstructing right renal calculus. 1 mm nonobstructing left renal calculus. The pancreas demonstrates no discrete noncontrast abnormality. Mild acute pancreatitis may not be evident on CT. RUQ U/S: Cholelithiasis is seen. The gallbladder is contracted which may be secondary to chronic cholecystitis versus representing physiologic change. If clinically indicated correlate with two-week follow-up sonography with optimal preparative fasting. There is no definite biliary tract dilatation. Possible diffuse hepatic steatosis. MRCP: pending Utox: +for opiates and marijuana ASSESSMENT/PLAN: 22M w/ pmhx of GERD/PUD who presented in the ED with sharp epigastric pain associated with nausea and vomiting. #Pancreatitis vs viral gastroenteritis vs cholelithiasis/choledocholithiasis; -Per surg: No acute cholecystitis. No surgery at this time as platelet ct decreased for unknown cause, however pt would benefit from eventual elective cholecystectomy. -Per GI: LFTs trending up, MRCP ordered for further workup. -RUQ U/S noted cholelithiasis with multiple gallstones present, no cholecystitis noted on u/s, though WBC noted at 12 -CTAP noted cholelithiasis, but mild acute pancreatitis may not be evident on CT -d/c'd Unasyn -LR @ 100cc/hr for fluid resuscitation -f/u MRCP #hx of GERD/PUD; Pt admits to an unintentional 20 lb weight loss over the past several months. -Increase frequency of Protonix 40 mg PO QD to BID -Pt reports he used to take Amoxicillin and two other drugs; possible history of H. Pylori, but pt is unsure. -Pt will need outpatient GI followup #Tobacco and Marijuana Use -compliance counsel patient on smoking cessation #DVT Ppx -d/c'd Heparin 5000 units SQ TID as pt has decreased platelets FEN -Fluids: LR @ 100 cc/hr -Electrolytes: No electrolyte abnormalities, BMP in AM -Nutrition: Regular diet dispo -cont to monitor on med/surg Visit type - Emergency Visit Emergency Visit: Yes ED Registration Date: 05/18/18 Care time: The patient presented to the Emergency Department on the above date and was hospitalized for further evaluation of their emergent condition. - New Patient This patient is new to me today: No - Critical Care Critical Care patient: No
[2018-05-21] MEDS: LACTATED RINGERS SOLUTION 1,000 ML IV SCH (05:47)
[2018-05-21 07:23] LABS: HEMATOCRIT 43.1 % (35.4-49); HEMOGLOBIN 14.3 GM/dL (11.7-16.9); MCHC 33.2 g/dl (32.0-35.9); MEAN CELL VOLUME 84.2 fl (80-96); MEAN PLT VOLUME 10.9 fl (7.5-11.1); PLATELET COUNT 103 K/MM3 (134-434); RBC 5.13 M/mm3 (4.00-5.60)
[2018-05-21 08:42] LABS: CHLORIDE 105 mmol/L (98-107); POTASSIUM 3.7 mmol/L (3.5-5.1); SODIUM 142 mmol/L (136-145)
[2018-05-21 09:22] LABS: ALBUMIN 3.2 g/dl (3.4-5.0); ALK PHOS 105 U/L (45-117); ANION GAP 6 MMOL/L (8-16); BILIRUBIN,TOTAL 0.4 mg/dL (0.2-1.0); BLOOD UREA NITROGEN 5 mg/dL (7-18); CALCIUM 8.9 mg/dL (8.5-10.1); CO2 31 mmol/L (21-32); CREATININE 0.6 mg/dL (0.7-1.3); GLUCOSE,RANDOM 82 mg/dL (74-106); SGOT/AST 23 U/L (15-37); SGPT/ALT 71 U/L (12-78); TOT PROT 6.4 g/dl (6.4-8.2)
[2018-05-21] MEDS: PANTOPRAZOLE 40 MG TABLET (FP) PO SCH (12:12)
--- NOTE | 2018-05-21 12:47 | PN ---
Progress Note (short form) - Note Progress Note: surgery pt seen and examined. still with some epigastric pain but eating a hamburger. lfts now normal. Plt no longer dropping. Mrcp shows normal duct, no stones in duct, non inflamed gb but poor study afebrile abd- soft, nt Plan- suspect choledocholithiasis with passed stone. lfts now normal and cbd only 3 mm. unclear why still has pain. gastritis? plt now stable. at this point will offer inpatient surgery to prevent recurrence of choledocholithiasis with possible complications of cholangitis, pancreatitis, and . Pt understands he will still need outpt endoscopy and hematology eval of low plt. I suspect the plt is a chronic problem and surgery is safe >50,000. will proceed with surgery tomorrow after npo tonight.
--- NOTE | 2018-05-21 13:57 | PN ---
Physical Exam: SUBJECTIVE: Patient seen and examined at bedside. Still in some epigastric pain but improved. Asked for splenectomy given finding of mild splenomegaly on CT and thrombocytopenia, was reassured that intervention is not necessary. OBJECTIVE: Vital Signs Period Temp Pulse Resp BP Sys/Chau Pulse Ox Last 24 Hr 98 F-98.1 F 51-56 16-20 121-136/61-74 100-100 GENERAL: A&Ox3, mildly unkempt, no acute distress HEAD: Normocephalic, atraumatic. EYES: PERRL, EOMI, no scleral icterus EARS, NOSE, THROAT: oropharynx clear without exudates. Moist mucous membranes. NECK: supple without lymphadenopathy LUNGS: CTA b/l, no crackles or wheezes HEART: Regular rate and rhythm, normal S1 and S2 without murmur, rub or gallop. ABDOMEN: Soft, Tender to palpation in epigastric region, Caraballo sign negative presently, normoactive bowel sounds MUSCULOSKELETAL: No bony deformities or tenderness. No CVA tenderness. UPPER EXTREMITIES: 2+ pulses, warm, well-perfused. No cyanosis. No clubbing. No peripheral edema. LOWER EXTREMITIES: 2+ pulses, warm, well-perfused. No calf tenderness. No peripheral edema. NEUROLOGICAL: Cranial nerves II-XII grossly intact. Normal speech. PSYCHIATRIC: Cooperative. Good eye contact. Appropriate mood and affect. SKIN: Warm, dry, normal turgor, no rashes or lesions noted Laboratory Results - last 24 hr 05/21/18 05/21/18 06:43 06:43 WBC 7.0 RBC 5.13 Hgb 14.3 Hct 43.1 MCV 84.2 MCH 28.0 MCHC 33.2 RDW 15.0 Plt Count 103 L MPV 10.9 Sodium 142 Potassium 3.7 Chloride 105 Carbon Dioxide 31 Anion Gap 6 L BUN 5 L Creatinine 0.6 L Creat Clearance w eGFR > 60 Random Glucose 82 Calcium 8.9 Total Bilirubin 0.4 AST 23 D ALT 71 D Alkaline Phosphatase 105 D Total Protein 6.4 Albumin 3.2 L Active Medications Generic Name Dose Route Start Last Admin Trade Name Freq PRN Reason Stop Dose Admin Ertapenem 1 gm 05/23/18 10:00 Invanz (Pre-Docked) IVPB 05/23/18 10:01 ONCE ONE Lactated Ringer's 1,000 mls @ 100 mls/hr 05/18/18 23:08 05/21/18 05:47 Lactated Ringers Solution IV 100 mls/hr ASDIR AUGUSTO Administration Pantoprazole Sodium 40 mg 05/20/18 22:00 05/21/18 12:12 Protonix - PO 40 mg BID AUGUSTO Administration ASSESSMENT/PLAN: 22M w/ pmhx of GERD/PUD who presented in the ED with sharp epigastric pain associated with nausea and vomiting. #Pancreatitis vs viral gastroenteritis vs cholelithiasis/choledocholithiasis; -LFTs resolved -MRCP showed severely contracted GB with normal duct and no choledocholithiasis , likely represents prior passage of ductal stone -Per surg: OR tomorrow, NPO after midnight, safe for Sx given Plts are stable and >50k -LR @ 100cc/hr for fluid resuscitation -one dose ertapenem given #hx of GERD/PUD; Pt admits to an unintentional 20 lb weight loss over the past several months. -Famotidine given instead of Protonix d/t Plt status -Pt reports he used to take Amoxicillin and two other drugs; possible history of H. Pylori, but pt is unsure. 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
--- NOTE | 2018-05-21 15:36 | PN ---
Teaching Attending Note Name of Resident: Carlton Rider ATTENDING PHYSICIAN STATEMENT I saw and evaluated the patient. I reviewed the resident's note and discussed the case with the resident. I agree with the resident's findings and plan as documented. SUBJECTIVE: No fever or chills. has epigastric abd pain that's sharp and intermittent. no N/ V. was toled he had ulcers in his stomach long time ago OBJECTIVE: NAD CV : RRR Lungs: CTAB Ext: no edema Abd: soft, TTP in RUQ. NL BS . No rebound tenderness or guarding ASSESSMENT AND PLAN: 22 y/o man with h/o GERD and ? PUD who presented with abd pain and was found to have transaminitis 1- Abd painand transaminitis : likely due to passed stone. Now normalized. ? chronic cholecystitis . - d/w Dr. Lawrence . for CCY tomorrow - NPO - need GI f/u for possible EGD as out pt - change PPI to famotidine due to thrombocytopenia - one dose of Abx today per sx 2- will confirm his psych home meds .
[2018-05-21] MEDS ORDERED: PT OWN MED DRAWER 7, Y5N ONE (19:31)
[2018-05-21] MEDS: FAMOTIDINE 20 MG/50 ML IVPB 20 MG/50 ML MG IVPB SCH (21:44)
[2018-05-22] MEDS: LACTATED RINGERS SOLUTION 1,000 ML IV SCH ×2 (02:29→16:46)
[2018-05-22 08:09] LABS: BASO % 0.7 % (0-2.0); EOS % 1.5 % (0-4.5); HEMATOCRIT 42.3 % (35.4-49); HEMOGLOBIN 14.1 GM/dL (11.7-16.9); MCHC 33.3 g/dl (32.0-35.9); MONO % 10.4 % (3.8-10.2); NEUT % 68.4 % (42.8-82.8); PLATELET COUNT 111 K/MM3 (134-434); RBC 5.03 M/mm3 (4.00-5.60); RDW 15.1 % (11.9-15.9); WHITE BLOOD COUNT 7.2 K/mm3 (4.0-10.0)
[2018-05-22 08:30] LABS: CHLORIDE 106 mmol/L (98-107); POTASSIUM 3.9 mmol/L (3.5-5.1); SODIUM 145 mmol/L (136-145)
[2018-05-22 08:37] LABS: ALBUMIN 3.2 g/dl (3.4-5.0); ALK PHOS 98 U/L (45-117); ANION GAP 8 MMOL/L (8-16); BILIRUBIN,TOTAL 0.4 mg/dL (0.2-1.0); BLOOD UREA NITROGEN 6 mg/dL (7-18); CALCIUM 9.1 mg/dL (8.5-10.1); CO2 31 mmol/L (21-32); CREATININE 0.7 mg/dL (0.7-1.3); GLUCOSE,RANDOM 74 mg/dL (74-106); SGOT/AST 19 U/L (15-37); SGPT/ALT 59 U/L (12-78); TOT PROT 6.5 g/dl (6.4-8.2)
[2018-05-22] MEDS ORDERED: MIDAZOLAM HCL 2 MG/2 ML SINGLE DOSE VIAL ONE ×2 (11:36)
[2018-05-22] MEDS ORDERED: KETOROLAC TROMETHAMINE 30 MG/1 ML VIAL ONE (11:36)
[2018-05-22] MEDS ORDERED: NEOSTIGMINE METHYLSULFATE 0.5 MG/ML - 10 ML MDV ONE (11:36)
[2018-05-22] MEDS ORDERED: SUCCINYLCHOLINE CHLORIDE 200 MG/10 ML VIAL ONE (11:36)
[2018-05-22] MEDS ORDERED: fentaNYL CITRATE 250 MCG/5 ML VIAL ONE (11:36)
[2018-05-22] MEDS ORDERED: GLYCOPYRROLATE 0.2 MG/1 ML VIAL ONE (11:36)
--- NOTE | 2018-05-22 11:52 | OP ---
Operative Note - Note: Operative Date: 05/22/18 Pre-Operative Diagnosis: cholelithiasis, choledocholithiasis Operation: laparoscopic cholecystectomy Findings: contracted, almost agenic white gb. Post-Operative Diagnosis: Same as Pre-op Surgeon: Diallo Lawrence Anesthesiologist/BLEACH MAKER: Lion Oro Anesthesia: General Specimens Removed: gb Estimated Blood Loss (mls): 10 Operative Report Dictated: Yes
[2018-05-22] MEDS ORDERED: ePHEDrine SULFATE 50 MG/1 ML AMPULE ONE (12:33)
[2018-05-22] MEDS ORDERED: ONDANSETRON 4 MG/2 ML VIAL IVPUSH PRN (13:54)
[2018-05-22] MEDS ORDERED: MEPERIDINE HCL CARPU-JECT 25 MG/1 ML DISP.SYRIN IVPUSH ONE (13:54)
--- NOTE | 2018-05-22 14:16 | OP ---
DATE OF OPERATION: 05/22/2018 PREOPERATIVE DIAGNOSIS: Choledocholithiasis, cholelithiasis. POSTOPERATIVE DIAGNOSIS: Choledocholithiasis, cholelithiasis. PROCEDURE: Laparoscopic cholecystectomy, lavage. SURGEON: Diallo Lawrence DO FISHERIES OFFICER: None. ANESTHESIOLOGIST: Lion Oro MD (general) INTRAOPERATIVE FINDINGS: Very contracted, almost agenic white gallbladder. BLOOD LOSS: Approximately 10 mL. SPECIMEN: Gallbladder. DRAINS: None. DISPOSITION: Recovery room in stable condition. BRIEF HISTORY: This is a 22-year-old male with history of substance abuse, presented to [facility] with abdominal pain, nausea, vomiting, elevated liver function tests, ultrasound consistent with cholelithiasis. He was seen by the GI service, felt to not require an ERCP. His liver function tests came down to normal. He presents now for cholecystectomy to prevent recurrence of presumed choledocholithiasis. He also has a history of peptic ulcer disease and will require outpatient endoscopy. PROCEDURE: The patient was placed in a supine position. After general anesthesia was administered, the abdomen was prepped and draped in sterile fashion. The patient already Invanz prophylaxis. Next, a transverse incision was made infraumbilical with a scalpel used to go through skin and subcutaneous tissue. The fascia was then lifted with a German clamp. Veress needle was inserted and pneumoperitoneum was created. Next, an 11-mm trocar was placed, followed by insertion of a 10-mm 0- degree laparoscope. Next, an additional 11-mm trocar was placed subxiphoid and two 5- mm trocars were placed in the right upper quadrant. Attention was turned toward the gallbladder. It was white in color, very contracted and intrahepatic. There were some omental adhesions to it which were taken down. The fundus was lifted cephalad and the infundibulum retracted laterally. The thickened peritoneal peel was dissected down, exposing a very long cystic duct and cystic artery. Both were clipped and divided. The gallbladder was then liberated from the liver bed using electrocautery. Hemostasis was maintained using electrocautery. The gallbladder was placed in a specimen bag and removed through the infraumbilical trocar site and sent to Pathology marked as specimen. A limited lavage was done and all return was clear. Trocars were then removed under direct visualization and no bleeding was noted. The fascia of the infraumbilical trocar site was then closed with multiple interrupted 0 Vicryl sutures and the 4 skin incisions were closed with Biosyn. Dermabond dressing was placed. Overall the patient tolerated the procedure well. DO JOANN VERDUGO/[id number] MTDD
[2018-05-22] MEDS ORDERED: MEPERIDINE HCL CARPU-JECT 25 MG/1 ML DISP.SYRIN ONE (14:29)
--- NOTE | 2018-05-22 15:19 | PN ---
Teaching Attending Note Name of Resident: Francheska Jalloh ATTENDING PHYSICIAN STATEMENT I saw and evaluated the patient. I reviewed the resident's note and discussed the case with the resident. I agree with the resident's findings and plan as documented. SUBJECTIVE: seen in recovery room. minimal pain in Abd. OBJECTIVE: NAD CV: RRR Lungs: CTAB Ext: no edema Abd: soft, TTP in RUQ. NL BS . No rebound tenderness or guarding ASSESSMENT AND PLAN: 22 y/o man with h/o GERD and ? PUD who presented with abd pain and was found to have transaminitis 1- Abd pain and transaminitis with cholelithiasis:sx are likely due to passed gall stone. - s/p CCY today - will try diet and ambulation when on floor - pain control if needed - need GI f/u for possible EGD as out pt 2- Psych : no longer on any psych meds. confirmed . Dispo : will evaluate later today , if can tolerate diet and ambulate, then can dc home . if not, will dc tomorrow
[2018-05-22] MEDS: FAMOTIDINE 20 MG/50 ML IVPB 20 MG/50 ML MG IVPB SCH ×2 (15:35→21:16)
[2018-05-22] MEDS: D5-1/2NS+20 MEQ KCL - 20 MEQ/1,000 ML INFUS.BAG IV SCH ×3 (16:20→17:00)
[2018-05-22] MEDS: morphine SULFATE 4 MG/ML VIAL IVPB PRN ×2 (17:01→20:44)
--- NOTE | 2018-05-22 17:01 | PN ---
Physical Exam: SUBJECTIVE: Patient seen and examined. No acute events overnight. OBJECTIVE: Vital Signs Temperature 98.2 F 05/22/18 17:00 Pulse Rate 59 L 05/22/18 17:00 Respiratory Rate 18 05/22/18 17:00 Blood Pressure 124/73 05/22/18 17:00 O2 Sat by Pulse Oximetry (%) 100 05/22/18 16:50 GENERAL: A&O, mildly unkempt, no acute distress HEAD: Normocephalic, atraumatic. EYES: PERRL, EOMI, no scleral icterus EARS, NOSE, THROAT: oropharynx clear without exudates. Moist mucous membranes. NECK: supple without lymphadenopathy LUNGS: CTA b/l, no crackles or wheezes HEART: Regular rate and rhythm, normal S1 and S2 without murmur, rub or gallop. ABDOMEN: Soft, Tender to palpation in epigastric region, Caraballo sign negative presently, normoactive bowel sounds MUSCULOSKELETAL: No bony deformities or tenderness. No CVA tenderness. UPPER EXTREMITIES: 2+ pulses, warm, well-perfused. No cyanosis. No clubbing. No peripheral edema. LOWER EXTREMITIES: 2+ pulses, warm, well-perfused. No calf tenderness. No peripheral edema. NEUROLOGICAL: Cranial nerves II-XII grossly intact. Normal speech. PSYCHIATRIC: Cooperative. Good eye contact. Appropriate mood and affect. SKIN: Warm, dry, normal turgor, no rashes or lesions noted CBC, BMP 05/22/18 07:00 05/22/18 07:00 Hepatic Panel Total Bilirubin 0.4 mg/dL (0.2-1.0) 05/22/18 07:00 Direct Bilirubin 0.2 mg/dL (0.0-0.2) 05/20/18 07:25 AST 19 U/L (15-37) 05/22/18 07:00 ALT 59 U/L (12-78) 05/22/18 07:00 Alkaline Phosphatase 98 U/L (45-117) 05/22/18 07:00 Albumin 3.2 g/dl (3.4-5.0) L 05/22/18 07:00 Home Medication List Medication Instructions Recorded Confirmed Type Naproxen [Naprosyn] 500 mg PO PRN 05/18/18 05/18/18 History Active Medications Enoxaparin Sodium (Lovenox -) 40 mg SQ DAILY AUGUSTO Potassium Chloride/Dextrose/Sod Cl (D5-1/2ns+20 Meq Kcl -) 20 meq in 1,000 mls @ 100 mls/hr IV ASDIR AUGUSTO Last Admin: 05/22/18 17:00 Dose: 100 mls/hr Lactated Ringer's (Lactated Ringers Solution) 1,000 mls @ 125 mls/hr IV ASDIR AUGUSTO Last Admin: 05/22/18 16:46 Dose: Not Given Famotidine/Sodium Chloride (Pepcid 20 Mg Premixed Ivpb -) 20 mg in 50 mls @ 100 mls/hr IVPB BID [facility] Morphine Sulfate (Morphine Sulfate) 8 mg IVPB Q3H PRN PRN Reason: PAIN LEVEL 7 - 10 Last Admin: 05/22/18 17:01 Dose: 8 mg Ondansetron HCl (Zofran Injection) 4 mg IVPUSH Q6H PRN PRN Reason: NAUSEA AND/OR VOMITING Oxycodone HCl (Roxicodone -) 7.5 mg PO Q4H PRN PRN Reason: PAIN LEVEL 4 - 6 IMAGING: MRCP showed severely contracted GB with normal duct and no choledocholithiasis, likely represents prior passage of ductal stone ASSESSMENT/PLAN: 22M w/ pmhx of GERD/PUD who presented in the ED with sharp epigastric pain associated with nausea and vomiting. #cholelithiasis; s/p cholecystectomy. Pt doing well. -LFTs resolved -LR @ 125cc/hr for fluid resuscitation -oxycodone 7.5 mg PO Q4H for pain -possible d/c in AM if pt is stable and tolerating diet after surgery and passes flatus #hx of GERD/PUD; Pt admits to an unintentional 20 lb weight loss over the past several months. -Famotidine 20 mg in 50 cc @ 100cc/hr IVPB BID, given instead of Protonix d/t Plt status -Pt reports he used to take Amoxicillin and two other drugs; possible history of H. Pylori, but pt is unsure. -Pt will need outpatient GI followup for possible endoscopy #thrombocytopenia; 111 today. 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 - New Patient This patient is new to me today: No - Critical Care Critical Care patient: No
[2018-05-23] MEDS: oxyCODONE HCL 5 MG TABLET PO PRN ×2 (00:50→10:28)
[2018-05-23] MEDS: LACTATED RINGERS SOLUTION 1,000 ML IV SCH (04:41)
[2018-05-23] MEDS: morphine SULFATE 4 MG/ML VIAL IVPB PRN (05:19)
--- NOTE | 2018-05-23 08:34 | PN ---
Progress Note (short form) - Note Progress Note: Post op day#1.S/p Laproscopic chlecystectomy unader [place] uneventful.Patient stable.No any anesthesia related problem.Patient Dc from the anesthesia care.
[2018-05-23] MEDS ORDERED: ENOXAPARIN NA (PORCINE) 40 MG/0.4 ML DISP.SYRIN SQ SCH (10:00)
[2018-05-23] MEDS ORDERED: ERTAPENEM SODIUM 1 GM/50 ML PRE-DOCKED IVPB ONE (10:00)
[2018-05-23] MEDS: FAMOTIDINE 20 MG/50 ML IVPB 20 MG/50 ML MG IVPB SCH (10:28)
[2018-05-23 11:51] VITALS: BP 114/59; PULSE 63; TEMP 98.3
--- NOTE | 2018-05-23 12:27 | DS ---
Physical Exam: SUBJECTIVE: Patient seen and examined. No acute events overnight. OBJECTIVE: Vital Signs Period Temp Pulse Resp BP Sys/Chau Pulse Ox Last 24 Hr 98 F-98.9 F 52-74 10-20 114-157/55-88 98-100 PHYSICAL EXAM GENERAL: A&Ox3, mildly unkempt, no acute distress HEAD: Normocephalic, atraumatic. EYES: PERRL, EOMI, no scleral icterus EARS, NOSE, THROAT: oropharynx clear without exudates. Moist mucous membranes. NECK: supple without lymphadenopathy LUNGS: CTA b/l, no crackles or wheezes HEART: Regular rate and rhythm, normal S1 and S2 without murmur, rub or gallop. ABDOMEN: Soft, Tender to palpation in epigastric region, Caraballo sign negative presently, normoactive bowel sounds MUSCULOSKELETAL: No bony deformities or tenderness. No CVA tenderness. UPPER EXTREMITIES: 2+ pulses, warm, well-perfused. No cyanosis. No clubbing. No peripheral edema. LOWER EXTREMITIES: 2+ pulses, warm, well-perfused. No calf tenderness. No peripheral edema. NEUROLOGICAL: Cranial nerves II-XII grossly intact. Normal speech. PSYCHIATRIC: Cooperative. Good eye contact. Appropriate mood and affect. SKIN: Warm, dry, normal turgor, no rashes or lesions noted LABS HOSPITAL COURSE: Date of Admission:05/21/18 IMAGING: MRCP showed severely contracted GB with normal duct and no choledocholithiasis, likely represents prior passage of ductal stone CXR: No acute chest pathology. No sign of pneumoperitoneum. CT Abd w/o contrast: Cholelithiasis. The gallbladder is markedly contracted which may be secondary to chronic cholecystitis versus representing physiologic change. If clinically indicated correlate with two-week follow-up sonography with optimal preparative fasting. Mild splenomegaly. 3 mm nonobstructing right renal calculus. 1 mm nonobstructing left renal calculus. The pancreas demonstrates no discrete noncontrast abnormality. Mild acute pancreatitis may not be evident on CT. RUQ U/S: Cholelithiasis is seen. The gallbladder is contracted which may be secondary to chronic cholecystitis versus representing physiologic change. If clinically indicated correlate with two-week follow-up sonography with optimal preparative fasting. There is no definite biliary tract dilatation. Possible diffuse hepatic steatosis. Utox: +for opiates and marijuana 22M w/ pmhx of GERD/PUD who presented in the ED with sharp epigastric pain associated with nausea and vomiting found to have cholelithiasis/ choledocholithiasis s/p laparoscopic cholecystectomy. Upon initial presentation , lab work showed elevated LFTs and lipase. RUQ was done in the ED that showed cholelithiasis w/ multiple gallstones present, but no cholecystitis noted, however WBC was elevated. Pt was given fluids, Toradol and Unasyn. GI was consulted. Upon GI consult, possible cholecystectomy was recommended, and as a result surgery was consulted. Upon surg eval, there was concern of operating on pt as he was thrombocytopenic with unknown cause. MRCP was ordered for further evaluation. MRCP showed severely contracted GB with normal duct and no choledocholithiasis likely presenting prior passage of ductal stone. Prior to surgery, pt's platelets had increased with LFTs normalized. Pt subsequently underwent laparoscopic cholecystectomy and was found to have a contracted, almost agenic white GB with no complications. Pt was monitored overnight. He was discharged home with Acetaminophen, Tramadol, Famotidine and instructions to follow up with his surgeon for post-op appt as well as GI for outpatient EGD. He was also referred to f/u with hematology for further evaluation of his abnormal platelet levels in addition to his PCP. Date of Discharge: 05/23/18 Minutes to complete discharge: 35 Discharge Summary Reason For Visit: CHOLELITHIASIS Condition: Stable - Instructions Diet, Activity, Other Instructions: You were admitted to the hospital for abdominal pain. Imaging studies were done that showed you had gallstones and a contracted gall bladder. You underwent a laparoscopic cholecystectomy. You are being discharged home with instructions to follow up outpatient. MEDICAL RECOMMENDATIONS Please start taking Famotidine 20mg daily by mouth. Please take tramadol for severe pain, and tylenol for mild pain. if your pain is uncontrolled , please contact Dr. Lawrence CONSULT RECOMMENDATIONS Please follow up with your primary care physician within 1 week. Please follow up with your surgeon, Dr. Lawrence, within 1 week. Please follow up with your GI doctor, Dr. Talbert, as you might need endoscopy Please follow up with the shopping investigator, Dr. Vargas to evaluate low platelet count If you experience chest pain, shortness of breath, nausea/vomiting, persistent constipation/diarrhea, please proceed to your nearest emergency room immediately. Resume your usual activities gradually, but no heavy exertion or lifting more than 10-15 pounds for 1 month. Referrals: [facility] [Provider Group] - 1 Week Jose Maria Talbert MD [Staff Physician] - 2 Weeks Danilo Vargas MD [Staff Physician] - Diallo Lawrence MD [Staff Physician] - 1 Week Disposition: HOME - Home Medications Comprehensive Discharge Medication List: Ambulatory Orders Famotidine 20 mg PO BID #60 tablet 05/22/18 Acetaminophen [Tylenol] 650 mg PO Q6H PRN #1 capsule 05/23/18 Tramadol HCl 50 mg PO Q8H #9 tablet MDD 3 tab 05/23/18 This patient is new to me today: No Emergency Visit: Yes ED Registration Date: 05/21/18 Care time: The patient presented to the Emergency Department on the above date and was hospitalized for further evaluation of their emergent condition. Critical Care patient: No - Discharge Referral Referred to [facility] No
--- NOTE | 2018-05-23 16:11 | PN ---
Teaching Attending Note Name of Resident: Francheska Jalloh ATTENDING PHYSICIAN STATEMENT I saw and evaluated the patient. I reviewed the resident's note and discussed the case with the resident. I agree with the resident's findings and plan as documented. SUBJECTIVE: no fever or chillls, abd pain is tolerable OBJECTIVE: NAD CV: RRR Lungs: CTAB Ext: no edema Abd: soft,minimal tenderness. dry clean laparoscopic wounds ASSESSMENT AND PLAN: 22 y/o man with h/o GERD and ? PUD who presented with abd pain and was found to have transaminitis 1- Abd pain and transaminitis with cholelithiasis:s/p CCY . - d/c home to follow with dr. Lawrence. - tramadole x 3 days only after dc - diet as tolerated - GI f/u for possible EGD as out pt . H2 lockers at dc 2- Psych : no longer on any psych meds. confirmed . Dispo : dc home
--- NOTE | 2018-05-26 18:48 | PATH ---
Surgical Pathology Report Patient Name: VI SEARS JR. [facility]. Rec. #: [id number] /Age/Gender: 1995 (Age: 22) / M Account: [id number] Location: [facility] MED/SURG Taken: 05/22/2018 Received: 05/23/2018 Reported: 05/26/2018 Physicians: Joesph Ng M.D. Specimen(s) Received GALLBLADDER Clinical History Choledocholithiasis Final Diagnosis GALLBLADDER, CHOLECYSTECTOMY: CHRONIC CHOLECYSTITIS AND CHOLELITHIASIS. ONE REACTIVE LYMPH NODE. Electronically Signed Brendon Montero M.D. Gross Description ReceNo ived in formalin, labeled "gallbladder," is a 5.0 x 2.0 x 1.3 cm. gallbladder with a 0.2 cm. in length portion of cystic duct attached. There is a 1.0 cm in greatest dimension periductal lymph node present. The outer surface is manzo-swanson with abundant defects. The lumen contains yellow, sludgelike bile as well as multiple black, irregular to fragmented choleliths ranging from 0.1-0.5 cm in greatest dimension. The mucosa is mnazo and eroded. The wall of the gallbladder averages 0.2 cm. in thickness. There is a portion of possible liver attached to the specimen. [employer] sections are submitted in 2 cassettes as follows: 1-cystic duct margin, bisected lymph node and liver; 2-medical representative gallbladder mucosa. 05/23/2018 [facility]05/23/2018
== END 2018-05-23 11:42 | disposition home or self-care (01) | DRG 263 ==
LOC: JER 16:14 → UNDOADMOB 22:16 → JERBED 22:16 → INTOOBSV 22:16 → JERBED 22:51 → J8W 05-19 17:24 → OBSVTOIN 05-21 15:17
PROVIDERS: ADMIT Internal Medicine; ATTEND Internal Medicine
PROC: 0FT44ZZ Resection of Gallbladder, Percutaneous Endoscopic Approach (ICD-10-PCS; principal; 2018-05-22 10:30)
DX: K80.20 Calculus of gallbladder without cholecystitis without obstruction (principal); K21.9 Gastro-esophageal reflux disease without esophagitis; F12.10 Cannabis abuse, uncomplicated; D72.829 Elevated white blood cell count, unspecified; F17.210 Nicotine dependence, cigarettes, uncomplicated; R16.1 Splenomegaly, not elsewhere classified; N20.0 Calculus of kidney; K52.9 Noninfective gastroenteritis and colitis, unspecified; R74.0 Nonspecific elevation of levels of transaminase and lactic acid dehydrogenase [LDH]; D69.6 Thrombocytopenia, unspecified; K81.1 Chronic cholecystitis; K76.0 Fatty (change of) liver, not elsewhere classified; K85.90 Acute pancreatitis without necrosis or infection, unspecified; Z87.11 Personal history of peptic ulcer disease
CPT/HCPCS: 36415; 71046-TC-FY; 71250-TC; 74150-TC; 74181-TC; 76705-TC; 80053; 80074; 80076; 80307; 81003; 81015; 82150; 83690; 83735; 84100; 85025; 85027; 85610; 85730; 86850; 86900; 86901; 88304-TC; 93005; 93010; 94760; 99285-25; G0378; J1644; J7030; Q0162